=== PATIENT | male | born 1945 | race Caucasian/White ===

== ENCOUNTER 2022-05-12 03:18 | Inpatient (IN) | payer MEDICARE ==
[2022-05-12 03:52] LABS: Appearance,Urine Clear (Clear); Bilirubin,Urine Negative (Negative); Blood,Urine Negative (Negative); Color,Urine Yellow; Glucose,Urine (UA) Negative (Negative); Ketones,Urine 3+ (Negative); Leukocyte Esterase,Urine Negative (Negative); Mucus,Urine Rare /hpf; Nitrite,Urine Negative (Negative); PH, Urine 8.5 (5.0-8.0); Protein,Urine 1+ (Negative); Specific Gravity,Urine 1.018 (1.001-1.035); Urobilinogen,Urine <2.0 mg/dL (<2.0); WBC,Urine 2 /hpf (0-5)
--- NOTE | 2022-05-12 07:32 | ED ---
General Adult HPI - General Chief complaint: Abdominal Pain Stated complaint: Stomach pain Source: patient, RN notes reviewed Mode of arrival: wheelchair - History of Present Illness Initial comments: 77 year old male with a PMH of prostate cancer with prostatectomy and was seen for advanced triage purposes in waiting room. Patient presents for abdominal pain. Patient states the pain is more upper but a little lower too. He noticed it last night around 730 pm. He noticed it when he was at a restaurant. He denies any associated diarrhea. Last bowel movement was yesterday and was normal. He has had several episodes of vomiting. He had similar pain 2 nights ago but it was very mild. He denies any associated fevers. He is urinating normally. Denies any alleviating factors. Vomiting makes the pain better. Denies any associated chest pain or shortness of breath. - Related Data Home Medications Medication Instructions Recorded Confirmed Apalutamide [Erleada] 60 mg PO TUTHSA@0900 05/12/22 05/12/22 Apalutamide [Erleada] 120 mg PO SUMOWEFR@0900 05/12/22 05/12/22 Cholecalciferol [Vitamin D3 (125 125 mcg PO HS 05/12/22 05/12/22 Mcg = 5000 Iu)] Multivitamins, Thera [Multivitamin 1 tab PO HS 05/12/22 05/12/22 (formulary)] Allergies Allergy/AdvReac Type Severity Reaction Status Date / Time Sulfa (Sulfonamide Allergy Anaphylaxis Verified 05/12/22 12:00 Antibiotics) Review of Systems ROS Statement: Those systems with pertinent positive or pertinent negative responses have been documented in the HPI. ROS Other: All systems not noted in ROS Statement are negative. Past Medical History Past Medical History: Cancer Additional Past Medical History / Comment(s): prostate cancer History of Any Multi-Drug Resistant Organisms: None Reported Past Surgical History: Tonsillectomy Past Psychological History: No Psychological Hx Reported Smoking Status: Former smoker Past Alcohol Use History: None Reported Past Drug Use History: None Reported Course Vital Signs 05/12/22 05/12/22 05/12/22 03:33 08:17 10:44 Temperature 97.6 F 98.1 F Pulse Rate 114 H 76 85 Respiratory 18 20 16 Rate Blood Pressure 183/82 150/85 150/84 O2 Sat by Pulse 100 98 98 Oximetry 05/12/22 14:31 Temperature Pulse Rate 73 Respiratory 18 Rate Blood Pressure 148/88 O2 Sat by Pulse 98 Oximetry Medical Decision Making - Lab Data Result diagrams: 05/12/22 07:45 05/12/22 07:45 Lab Results 05/12/22 05/12/22 05/12/22 Range/Units 03:39 07:45 07:45 WBC 10.3 (3.8-10.6) k/uL RBC 4.35 (4.30-5.90) m/uL Hgb 14.2 (13.0-17.5) gm/dL Hct 41.5 (39.0-53.0) % MCV 95.3 (80.0-100.0) fL MCH 32.6 (25.0-35.0) pg MCHC 34.2 (31.0-37.0) g/dL RDW 12.1 (11.5-15.5) % Plt Count 234 (150-450) k/uL MPV 8.0 Neutrophils % 93 % Lymphocytes % 3 % Monocytes % 3 % Eosinophils % 0 % Basophils % 0 % Neutrophils # 9.6 H (1.3-7.7) k/uL Lymphocytes # 0.3 L (1.0-4.8) k/uL Monocytes # 0.3 (0-1.0) k/uL Eosinophils # 0.0 (0-0.7) k/uL Basophils # 0.0 (0-0.2) k/uL Sodium 135 L (137-145) mmol/L Potassium 3.7 (3.5-5.1) mmol/L Chloride 104 (98-107) mmol/L Carbon Dioxide 21 L (22-30) mmol/L Anion Gap 10 mmol/L BUN 19 (9-20) mg/dL Creatinine 0.77 (0.66-1.25) mg/dL Est GFR (CKD-EPI)AfAm >90 (>60 ml/min/1.73 sqM) Est GFR (CKD-EPI)NonAf 89 (>60 ml/min/1.73 sqM) Glucose 177 H (74-99) mg/dL Lactic Ac Sepsis Rflx Plasma Lactic Acid Collin (0.7-2.0) mmol/L Calcium 9.3 (8.4-10.2) mg/dL Total Bilirubin 0.8 (0.2-1.3) mg/dL AST 23 (17-59) U/L ALT 20 (4-49) U/L Alkaline Phosphatase 88 (38-126) U/L Total Protein 7.0 (6.3-8.2) g/dL Albumin 4.7 (3.5-5.0) g/dL Amylase 46 (30-110) U/L Lipase 62 (23-300) U/L Urine Color Yellow Urine Appearance Clear (Clear) Urine pH 8.5 H (5.0-8.0) Ur Specific [place] 1.018 (1.001-1.035) Urine Protein 1+ H (Negative) Urine Glucose (UA) Negative (Negative) Urine Ketones 3+ H (Negative) Urine Blood Negative (Negative) Urine Nitrite Negative (Negative) Urine Bilirubin Negative (Negative) Urine Urobilinogen <2.0 (<2.0) mg/dL Ur Leukocyte Esterase Negative (Negative) Urine WBC 2 (0-5) /hpf Urine Mucus Rare H (None) /hpf 05/12/22 05/12/22 Range/Units 07:45 08:26 WBC (3.8-10.6) k/uL RBC (4.30-5.90) m/uL Hgb (13.0-17.5) gm/dL Hct (39.0-53.0) % MCV (80.0-100.0) fL MCH (25.0-35.0) pg MCHC (31.0-37.0) g/dL RDW (11.5-15.5) % Plt Count (150-450) k/uL MPV Neutrophils % % Lymphocytes % % Monocytes % % Eosinophils % % Basophils % % Neutrophils # (1.3-7.7) k/uL Lymphocytes # (1.0-4.8) k/uL Monocytes # (0-1.0) k/uL Eosinophils # (0-0.7) k/uL Basophils # (0-0.2) k/uL Sodium (137-145) mmol/L Potassium (3.5-5.1) mmol/L Chloride (98-107) mmol/L Carbon Dioxide (22-30) mmol/L Anion Gap mmol/L BUN (9-20) mg/dL Creatinine (0.66-1.25) mg/dL Est GFR (CKD-EPI)AfAm (>60 ml/min/1.73 sqM) Est GFR (CKD-EPI)NonAf (>60 ml/min/1.73 sqM) Glucose (74-99) mg/dL Lactic Ac Sepsis Rflx Y Plasma Lactic Acid Collin 3.2 H* (0.7-2.0) mmol/L Calcium (8.4-10.2) mg/dL Total Bilirubin (0.2-1.3) mg/dL AST (17-59) U/L ALT (4-49) U/L Alkaline Phosphatase (38-126) U/L Total Protein (6.3-8.2) g/dL Albumin (3.5-5.0) g/dL Amylase (30-110) U/L Lipase (23-300) U/L Urine Color Urine Appearance (Clear) Urine pH (5.0-8.0) Ur Specific [place] (1.001-1.035) Urine Protein (Negative) Urine Glucose (UA) (Negative) Urine Ketones (Negative) Urine Blood (Negative) Urine Nitrite (Negative) Urine Bilirubin (Negative) Urine Urobilinogen (<2.0) mg/dL Ur Leukocyte Esterase (Negative) Urine WBC (0-5) /hpf Urine Mucus (None) /hpf Disposition Clinical Impression: Partial small bowel obstruction Disposition: ADMITTED IP TO THIS HOSP
[2022-05-12 07:56] LABS: Basophils % (A) 0 %; Eosinophils % (A) 0 %; HCT 41.5 % (39.0-53.0); HGB 14.2 gm/dL (13.0-17.5); Lymphocytes # (A) 0.3 k/uL (1.0-4.8); Lymphocytes % (A) 3 %; MCH 32.6 pg (25.0-35.0); MCHC 34.2 g/dL (31.0-37.0); MCV 95.3 fL (80.0-100.0); Monocytes # (A) 0.3 k/uL (0-1.0); Monocytes % (A) 3 %; Neutrophils # (A) 9.6 k/uL (1.3-7.7); Neutrophils % (A) 93 %; Platelet Count 234 k/uL (150-450); RBC 4.35 m/uL (4.30-5.90); RDW 12.1 % (11.5-15.5); WBC 10.3 k/uL (3.8-10.6)
[2022-05-12 08:21] LABS: ALT 20 U/L (4-49); AST 23 U/L (17-59); African American GFR (CKD) >90 (>60 ml/min/1.73 sqM); Albumin 4.7 g/dL (3.5-5.0); Alkaline Phosphatase 88 U/L (38-126); Amylase 46 U/L (30-110); Anion Gap 10 mmol/L; Blood Urea Nitrogen 19 mg/dL (9-20); Calcium 9.3 mg/dL (8.4-10.2); Carbon Dioxide 21 mmol/L (22-30); Chloride 104 mmol/L (98-107); Glucose 177 mg/dL (74-99); Lipase 62 U/L (23-300); Non-African American GFR(CKD) 89 (>60 ml/min/1.73 sqM); Potassium 3.7 mmol/L (3.5-5.1); Sodium 135 mmol/L (137-145); Total Bilirubin 0.8 mg/dL (0.2-1.3)
[2022-05-12] MEDS ORDERED: SODIUM CHLORIDE 0.9% 1,000 ML IV ONE ×2 (08:43→10:30)
[2022-05-12] MEDS ORDERED: ONDANSETRON 4 MG/2 ML VIAL IVP STA (08:43)
[2022-05-12] MEDS ORDERED: HYDROmorphone 0.5 MG/0.5 ML SYRINGE IVP STA (08:43)
--- NOTE | 2022-05-12 09:02 | ED ---
General Adult HPI - General Chief complaint: Abdominal Pain Stated complaint: Stomach pain Time Seen by Provider: 05/12/22 07:00 Source: patient, RN notes reviewed Mode of arrival: wheelchair - History of Present Illness Initial comments: This is a 77-year-old male presents emergency Department complaining of abdominal pain that started around 6:30 yesterday afternoon and worsened throughout the night. Patient states he has been vomiting quite a bit since then. Patient points to the suprapubic region where it is causing most of the pain. Patient states she does have a history of prostate cancer. Patient denies any diarrhea recently. Patient denies any fever chills. Patient states the pain is still there now it's not quite as bad as it was earlier. Patient still remains nauseated. She denies any chest pain. Patient denies any difficulty breathing. Patient has any pain radiates to the back. - Related Data Allergies Allergy/AdvReac Type Severity Reaction Status Date / Time Sulfa (Sulfonamide Allergy Rash/Hives Verified 05/12/22 03:38 Antibiotics) Review of Systems ROS Statement: Those systems with pertinent positive or pertinent negative responses have been documented in the HPI. ROS Other: All systems not noted in ROS Statement are negative. Past Medical History Past Medical History: Cancer Additional Past Medical History / Comment(s): prostate cancer History of Any Multi-Drug Resistant Organisms: None Reported Past Surgical History: Tonsillectomy Past Psychological History: No Psychological Hx Reported Smoking Status: Former smoker Past Alcohol Use History: None Reported Past Drug Use History: None Reported General Exam - General Exam Comments Initial Comments: GENERAL: Patient is well-developed and well-nourished. Patient is nontoxic and well- hydrated and is in mild distress. ENT: Neck is soft and supple. No significant lymphadenopathy is noted. Oropharynx is clear. Moist mucous membranes. Neck has full range of motion without eliciting any pain. EYES: The sclera were anicteric and conjunctiva were pink and moist. Extraocular movements were intact and pupils were equal round and reactive to light. Eyelids were unremarkable. PULMONARY: Unlabored respirations. Good breath sounds bilaterally. No audible rales rhonc hi or wheezing was noted. CARDIOVASCULAR: There is a regular rate and rhythm without any murmurs gallops or rubs. ABDOMEN: Very minimal tenderness in the suprapubic region SKIN: Skin is clear with no lesions or rashes and otherwise unremarkable. NEUROLOGIC: Patient is alert and oriented x3. Cranial nerves II through XII are grossly intact. Motor and sensory are also intact. Normal speech, volume and content. Symmetrical smile. MUSCULOSKELETAL: Normal extremities with adequate strength and full range of motion. LYMPHATICS: No significant lymphadenopathy is noted PSYCHIATRIC: Normal psychiatric evaluation. Course Vital Signs 05/12/22 05/12/22 03:33 08:17 Temperature 97.6 F 98.1 F Pulse Rate 114 H 76 Respiratory 18 20 Rate Blood Pressure 183/82 150/85 O2 Sat by Pulse 100 98 Oximetry Medical Decision Making - Medical Decision Making Was pt. sent in by a medical professional or institution (, PA, M[employer]ESS P[employer]ER, urgent care, hospital, or retirement...) When possible be specific @ -[No] Did you speak to anyone other than the patient for history (EMS, parent, family, police, friend...)? What history was obtained from this source @ -[No] Did you review nursing and triage notes (agree or disagree)? Why? @ -[I reviewed and agree with nursing and triage notes] Were old charts reviewed (outside hosp., previous admission, EMS record, old EKG, old radiological studies, urgent care reports/EKG's, retirement records)? Report findings @ -[No old charts were reviewed] Differential Diagnosis (chest pain, altered mental status, abdominal pain women, abdominal pain men, vaginal bleeding, weakness, fever, dyspnea, syncope, headache, dizziness, GI bleed, back pain, seizure, CVA, palpatations, mental health)? @ -Differential Abdominal Pain Men: Appendicitis, cholecystitis, diverticulosis, ischemic bowel, pancreatitis, hepatitis, UTI, gastroenteritis, AAA, incarcerated hernia, bowel obstruction, constipation, inflammatory bowel, hepatitis, peptic ulcer disease, splenic infarction, perforated viscus, testicular torsion, this is not meant to be an all-inclusive list EKG interpreted by me (3pts min.). @ -[As above] X-rays interpreted by me (1pt min.). @ -[None done] CT interpreted by me (1pt min.). @ -I interpreted the CT of the abdomen and pelvis shows small bowel structures U/S interpreted by me (1pt. min.). @ -[None done] What testing was considered but not performed or refused? (CT, X-rays, U/S, labs)? Why? @ -[None] What meds were considered but not given or refused? Why? @ -[None] Did you discuss the management of the patient with other professionals (professionals i.e. , PA, M[employer]ESS P[employer]ER, lab, RT, psych nurse, social science research assistant, insurance sales agent, teacher, finance officer, caser up)? Give summary @ -I spoke with sound physician's and he agreed to admit the patient admitted the patient I consulted surgery Was smoking cessation discussed for >3mins.? @ -[No] Was critical care preformed (if so, how long)? @ -[No] Were there social determinants of health that impacted care today? How? (Homelessness, low income, unemployed, alcoholism, drug addiction, transportation, low edu. Level, literacy, decrease access to med. care, senior care, rehab)? @ -[No] Was there de-escalation of care discussed even if they declined (Discuss DNR or withdrawal of care, Hospice)? DNR status @ -[No] What co-morbidities impacted this encounter? (DM, HTN, Smoking, COPD, CAD, Cancer, CVA, ARF, Chemo, Hep., AIDS, mental health diagnosis, sleep apnea, morbid obesity)? @ -Patient has a previous history of abdominal surgery for prostate cancer which can lead to adhesions Was patient admitted / discharged? Hospital course, mention meds given and route, prescriptions, significant lab abnormalities, going to OR and other pertinent info. @ -Patient will be admitted. I spoke with hospitalist agreed to admit the patient admitted the patient wrote admitting orders. Patient and she placed. Patient was also given nausea medicine and pain medicine Undiagnosed new problem with uncertain prognosis? @ -[No] Drug Therapy requiring intensive monitoring for toxicity (Heparin, Nitro, Insulin, Cardizem)? @ -[No] Were any procedures done? @ -[No] Diagnosis/symptom? @ -Small bowel obstruction Acute, or Chronic, or Acute on Chronic? @ -Acute Uncomplicated (without systemic symptoms) or Complicated (systemic symptoms)? @ -Complicated Side effects of treatment? @ -[No] Exacerbation, Progression, or Severe Exacerbation? @ -[No] Poses a threat to life or bodily function? How? (Chest pain, [place], ND, pneumonia, PE, COPD, DKA, ARF, appy, cholecystitis, CVA, Diverticulitis, Homicidal, Suicidal, threat to staff... and all critical care pts) @ -[No] - Lab Data Result diagrams: 05/12/22 07:45 05/12/22 07:45 Lab Results 05/12/22 05/12/22 05/12/22 Range/Units 03:39 07:45 07:45 WBC 10.3 (3.8-10.6) k/uL RBC 4.35 (4.30-5.90) m/uL Hgb 14.2 (13.0-17.5) gm/dL Hct 41.5 (39.0-53.0) % MCV 95.3 (80.0-100.0) fL MCH 32.6 (25.0-35.0) pg MCHC 34.2 (31.0-37.0) g/dL RDW 12.1 (11.5-15.5) % Plt Count 234 (150-450) k/uL MPV 8.0 Neutrophils % 93 % Lymphocytes % 3 % Monocytes % 3 % Eosinophils % 0 % Basophils % 0 % Neutrophils # 9.6 H (1.3-7.7) k/uL Lymphocytes # 0.3 L (1.0-4.8) k/uL Monocytes # 0.3 (0-1.0) k/uL Eosinophils # 0.0 (0-0.7) k/uL Basophils # 0.0 (0-0.2) k/uL Sodium 135 L (137-145) mmol/L Potassium 3.7 (3.5-5.1) mmol/L Chloride 104 (98-107) mmol/L Carbon Dioxide 21 L (22-30) mmol/L Anion Gap 10 mmol/L BUN 19 (9-20) mg/dL Creatinine 0.77 (0.66-1.25) mg/dL Est GFR (CKD-EPI)AfAm >90 (>60 ml/min/1.73 sqM) Est GFR (CKD-EPI)NonAf 89 (>60 ml/min/1.73 sqM) Glucose 177 H (74-99) mg/dL Lactic Ac Sepsis Rflx Plasma Lactic Acid Collin (0.7-2.0) mmol/L Calcium 9.3 (8.4-10.2) mg/dL Total Bilirubin 0.8 (0.2-1.3) mg/dL AST 23 (17-59) U/L ALT 20 (4-49) U/L Alkaline Phosphatase 88 (38-126) U/L Total Protein 7.0 (6.3-8.2) g/dL Albumin 4.7 (3.5-5.0) g/dL Amylase 46 (30-110) U/L Lipase 62 (23-300) U/L Urine Color Yellow Urine Appearance Clear (Clear) Urine pH 8.5 H (5.0-8.0) Ur Specific [place] 1.018 (1.001-1.035) Urine Protein 1+ H (Negative) Urine Glucose (UA) Negative (Negative) Urine Ketones 3+ H (Negative) Urine Blood Negative (Negative) Urine Nitrite Negative (Negative) Urine Bilirubin Negative (Negative) Urine Urobilinogen <2.0 (<2.0) mg/dL Ur Leukocyte Esterase Negative (Negative) Urine WBC 2 (0-5) /hpf Urine Mucus Rare H (None) /hpf 05/12/22 05/12/22 Range/Units 07:45 08:26 WBC (3.8-10.6) k/uL RBC (4.30-5.90) m/uL Hgb (13.0-17.5) gm/dL Hct (39.0-53.0) % MCV (80.0-100.0) fL MCH (25.0-35.0) pg MCHC (31.0-37.0) g/dL RDW (11.5-15.5) % Plt Count (150-450) k/uL MPV Neutrophils % % Lymphocytes % % Monocytes % % Eosinophils % % Basophils % % Neutrophils # (1.3-7.7) k/uL Lymphocytes # (1.0-4.8) k/uL Monocytes # (0-1.0) k/uL Eosinophils # (0-0.7) k/uL Basophils # (0-0.2) k/uL Sodium (137-145) mmol/L Potassium (3.5-5.1) mmol/L Chloride (98-107) mmol/L Carbon Dioxide (22-30) mmol/L Anion Gap mmol/L BUN (9-20) mg/dL Creatinine (0.66-1.25) mg/dL Est GFR (CKD-EPI)AfAm (>60 ml/min/1.73 sqM) Est GFR (CKD-EPI)NonAf (>60 ml/min/1.73 sqM) Glucose (74-99) mg/dL Lactic Ac Sepsis Rflx Y Plasma Lactic Acid [place]lin 3.2 H* (0.7-2.0) mmol/L Calcium (8.4-10.2) mg/dL Total Bilirubin (0.2-1.3) mg/dL AST (17-59) U/L ALT (4-49) U/L Alkaline Phosphatase (38-126) U/L Total Protein (6.3-8.2) g/dL Albumin (3.5-5.0) g/dL Amylase (30-110) U/L Lipase (23-300) U/L Urine Color Urine Appearance (Clear) Urine pH (5.0-8.0) Ur Specific [place] (1.001-1.035) Urine Protein (Negative) Urine Glucose (UA) (Negative) Urine Ketones (Negative) Urine Blood (Negative) Urine Nitrite (Negative) Urine Bilirubin (Negative) Urine Urobilinogen (<2.0) mg/dL Ur Leukocyte Esterase (Negative) Urine WBC (0-5) /hpf Urine Mucus (None) /hpf Disposition Clinical Impression: Partial small bowel obstruction Disposition: ADMITTED IP TO THIS HOSP Referrals: Emanuel Wade DO [Primary Care Provider] - 1-2 days Time of Disposition: 10:30
--- NOTE | 2022-05-12 09:56 | CT ---
EXAMINATION TYPE: CT abdomen pelvis w con DATE OF EXAM: 05/12/2022 COMPARISON: None. HISTORY: Upper abdominal pain with nausea CT DLP: 911.4 mGycm, Automated Exposure Control for Dose Reduction was Utilized. CONTRAST: CT scan of the abdomen and pelvis is performed without oral and with IV Contrast, patient injected wi th 100 mL of Isovue 300. FINDINGS: LUNG BASES: Mild bibasilar linear scarring and/or atelectasis. LIVER/GB: No significant abnormality is appreciated. PANCREAS: No significant abnormality is seen. SPLEEN: No significant abnormality is seen. ADRENALS: Heterogeneous thickened low dense bilateral adrenal glands consistent with benign lipid carlito h hyperplasia. KIDNEYS: Symmetric cortical partially uptake and excretion without hydronephrosis seen bilaterally. BOWEL: Small sized hiatal hernia. No suspicious dilatation of stomach or duodenal sweep. Nondilated j ejunal small bowel loops in the left abdomen. Predominantly nondilated ileal small bowel loops in the right abdomen. There are prominent fluid and fecal filled distal ileal small bowel loops in the lowe r abdomen and pelvis. There is nondistended colon along the periphery. Terminal ileum appears within normal limits coronal image 46. Small bowel loops measure up to 2.9 cm in diameter axial image 72. Ab rupt transition at this level noted in the pelvis. PROSTATE/SEMINAL VESICLES: No gross abnormality seen. LYMPH NODES: No greater than 1cm noncalcified abdominal or pelvic lymph nodes are appreciated. Calci fied prominent but subcentimeter right lower quadrant mesenteric lymph nodes are seen OSSEOUS STRUCTURES: No significant abnormality is seen. OTHER: Small fat-containing umbilical hernia. IMPRESSION: Findings consistent with partial distal small bowel obstruction as detailed above presume d on the basis of adhesion.
--- NOTE | 2022-05-12 16:03 | P.HPIM ---
History of Present Illness H&P Date: 05/12/22 Patient is a 77-year-old male with PMH of prostate cancer, underwent robotic prostatectomy in 2006 presents the ED for epigastric pain and intractable nausea and vomiting. Patient reports vague abdominal pain that has been ongoing for the past week. Yesterday, his pain acutely worsened after eating dinner at [employer]. This was followed with 10-15 episodes of bilious nausea vomiting. These symptoms prompted him to come to the ED. He denies any headache, lower extremity edema, fever or chills, cough, chest pain, shortness breath, palpitations, changes in urination or bowel habits. No changes in appetite or weight. He denies any dizziness, numbness/weakness/tingling of extremities. In the ED, he was noted to be hypertensive with BP 183/82 and pulse of 114. CBC was benign. CMP showed sodium of 135, bicarb of 21, glucose 177. Lactic acid was 3.2. Urinalysis showed 3+ ketone. CTAP showed partial distal small bowel obstruction. Patient is admitted for further workup and management of symptoms. NG tube was placed to suction which relieved his abdominal pain. Pertinent positives and negatives as discussed in HPI, a complete review of systems was performed and all other systems are negative. General: non toxic, no distress, appears at stated age Derm: warm, dry Head: atraumatic, normocephalic, symmetric Eyes: EOMI, no lid lag, anicteric sclera Mouth: no lip lesion, mucus membranes moist Cardiovascular: S1S2 reg, no murmur, positive posterior tibial pulse bilateral, Lungs: CTA bilateral, no rhonchi, no rales , no accessory muscle use Abdominal: soft, nontender to palpation, no guarding, no appreciable organomegaly Ext: no gross muscle atrophy, no edema, no contractures Neuro: CN II-XI grossly intact, no focal neuro deficits Psych: Alert, oriented, appropriate affect #Small bowel obstruction #Lactic acidosis He does not appear to have an acute abdomen. Likely related to adhesions from previous surgery. Patient will be started on IV hydration with normal saline at 75 mL per hour. General surgery has been consulted. He'll be placed nothing by mouth. KUB ordered for tomorrow morning. Pain control with Dilaudid as needed. Zofran as needed for nausea and vomiting. Trend lactic acid until negative. Chronic conditions: History of prostate cancer Patient will need follow-up with oncologist Dr. Morrow at [facility]. DVT prophylaxis: SCDs Discussed with: Patient, ED physician Anticipated discharge: Depending on clinical course Anticipated discharge place: Home A total of 30 minutes was spent on the care of this complex patient more than 50% of the time was spent in counseling and care coordination. Patient will like to be full code. is his decision maker if he can't make decisions for himself. Past Medical History Past Medical History: Cancer Additional Past Medical History / Comment(s): prostate cancer History of Any Multi-Drug Resistant Organisms: None Reported Past Surgical History: Tonsillectomy Past Psychological History: No Psychological Hx Reported Smoking Status: Former smoker Past Alcohol Use History: None Reported Past Drug Use History: None Reported Medications and Allergies Home Medications Medication Instructions Recorded Confirmed Type Apalutamide [Erleada] 60 mg PO TUTHSA@0900 05/12/22 05/12/22 History Apalutamide [Erleada] 120 mg PO SUMOWEFR@0900 05/12/22 05/12/22 History Cholecalciferol [Vitamin D3 (125 125 mcg PO HS 05/12/22 05/12/22 History Mcg = 5000 Iu)] Multivitamins, Thera [Multivitamin 1 tab PO HS 05/12/22 05/12/22 History (formulary)] Allergies Allergy/AdvReac Type Severity Reaction Status Date / Time Sulfa (Sulfonamide Allergy Anaphylaxis Verified 05/12/22 12:00 Antibiotics) Physical Exam Vitals: Vital Signs Temp Pulse Resp BP Pulse Ox 05/12/22 14:31 73 18 148/88 98 05/12/22 10:44 85 16 150/84 98 05/12/22 08:17 98.1 F 76 20 150/85 98 05/12/22 03:33 97.6 F 114 H 18 183/82 100 Intake and Output 05/12/22 05/12/22 05/12/22 06:59 14:59 22:59 Other: Weight 79.379 kg Results CBC & Chem 7: 05/12/22 07:45 05/12/22 07:45 Labs: Abnormal Lab Results - Last 24 Hours (Table) 05/12/22 05/12/22 05/12/22 Range/Units 03:39 07:45 07:45 Neutrophils # 9.6 H (1.3-7.7) k/uL Lymphocytes # 0.3 L (1.0-4.8) k/uL Sodium 135 L (137-145) mmol/L Carbon Dioxide 21 L (22-30) mmol/L Glucose 177 H (74-99) mg/dL Plasma Lactic Acid [place] (0.7-2.0) mmol/L Urine pH 8.5 H (5.0-8.0) Urine Protein 1+ H (Negative) Urine Ketones 3+ H (Negative) Urine Mucus Rare H (None) /hpf 05/12/22 Range/Units 07:45 Neutrophils # (1.3-7.7) k/uL Lymphocytes # (1.0-4.8) k/uL Sodium (137-145) mmol/L Carbon Dioxide (22-30) mmol/L Glucose (74-99) mg/dL Plasma Lactic Acid [place] 3.2 H* (0.7-2.0) mmol/L Urine pH (5.0-8.0) Urine Protein (Negative) Urine Ketones (Negative) Urine Mucus (None) /hpf
--- NOTE | 2022-05-13 07:38 | XR ---
EXAMINATION TYPE: XR abdomen 2V DATE OF EXAM: 05/13/2022 7:13 AM INDICATION: Patient age:Male; 77 years old; Reason for study: sbo. COMPARISON: None. TECHNIQUE: Two views of the abdomen were obtained. FINDINGS: Nasogastric tube terminating over the gastric lumen. The bowel gas pattern is nonspecific w ithout dilated loops of small or large bowel. There is no evidence for organomegaly or pneumoperitone um. The osseous structures are intact. No abnormal calcifications are present. Fecal material and g as are demonstrated throughout the colon and rectum. Multilevel disc degeneration changes. IMPRESSION: Nasogastric tube with distal tip and side-port terminating over the gastric lumen. No dilated loops of bowel seen on radiography. Nonspecific bowel gas pattern without radiographic bhavik dence for acute process.
[2022-05-13 11:25] LABS: Basophils # (A) 0.02 X 10*3/uL (0.00-0.10); Basophils % (A) 0.2 %; Eosinophils # (A) 0.02 X 10*3/uL (0.04-0.35); Eosinophils % (A) 0.2 %; HCT 40.2 % (39.6-50.0); HGB 13.1 g/dL (13.0-17.0); Immature Grans, Automated 0.2 %; Lymphocytes # (A) 0.74 X 10*3/uL (0.90-5.00); Lymphocytes % (A) 6.5 %; MCH 32.3 pg (27.0-32.0); MCHC 32.6 g/dL (32.0-37.0); MCV 99.3 fL (80.0-97.0); Mean Platelet Volume 10.1 fL (9.5-12.2); Monocytes # (A) 1.12 X 10*3/uL (0.20-1.00); Monocytes % (A) 9.9 %; NRBC Per 100 WBC 0 /100 WBCS (0.0-0.0); Neutrophils # (A) 9.38 X 10*3/uL (1.80-7.70); Platelet Count 213 X 10*3/uL (140-440); RBC 4.05 X 10*6/uL (4.40-5.60); RDW 13.2 % (11.5-14.5)
[2022-05-13 11:31] LABS: Anion Gap 10.4 mmol/L (10.00-18.00); BUN/Creat Ratio 16.76 Ratio (12.00-20.00); Blood Urea Nitrogen 14.9 mg/dL (9.0-27.0); Calcium 8.6 mg/dL (8.7-10.3); Carbon Dioxide 23.8 mmol/L (20.0-27.5); Non-African American GFR(CKD) 83.7 (60.0-200.0); Potassium 3.6 mmol/L (3.5-5.5)
--- NOTE | 2022-05-13 13:17 | P.PN ---
Subjective Progress Note Date: 05/13/22 Patient is a 77-year-old male with PMH of prostate cancer, underwent robotic prostatectomy in 2006 presents the ED for epigastric pain and intractable nausea and vomiting. Patient reports vague abdominal pain that has been ongoing for the past week. Yesterday, his pain acutely worsened after eating dinner at [employer]. This was followed with 10-15 episodes of bilious nausea vomiting. These symptoms prompted him to come to the ED. He denies any headache, lower extremity edema, fever or chills, cough, chest pain, shortness breath, palpitations, changes in urination or bowel habits. No changes in appetite or weight. He denies any dizziness, numbness/weakness/tingling of extremities. In the ED, he was noted to be hypertensive with BP 183/82 and pulse of 114. CBC was benign. CMP showed sodium of 135, bicarb of 21, glucose 177. Lactic acid was 3.2. Urinalysis showed 3+ ketone. CTAP showed partial distal small bowel obstruction. Patient is admitted for further workup and management of symptoms. NG tube was placed to suction which relieved his abdominal pain. Patient was seen and examined. No acute events overnight. About 500 mL output from the NG tube overnight. Patient reports well controlled abdominal pain. No nausea or vomiting. No other complaints. KUB reviewed this morning which shows NG tube in place with no dilated loops of bowel. General: non toxic, no distress, appears at stated age Derm: warm, dry Head: atraumatic, normocephalic, symmetric Eyes: EOMI, no lid lag, anicteric sclera Mouth: no lip lesion, mucus membranes moist Cardiovascular: S1S2 reg, no murmur Lungs: CTA bilateral, no rhonchi, no rales , no accessory muscle use Abdominal: soft, nontender to palpation, no guarding, no appreciable organomegaly Ext: no gross muscle atrophy, no edema, no contractures Neuro: no focal neuro deficits Psych: Alert, oriented, appropriate affect #Small bowel obstruction He does not appear to have an acute abdomen. Likely related to adhesions from previous surgery. Patient will be started on IV hydration with normal saline at 75 mL per hour. General surgery has been consulted. He'll be continued nothing by mouth. Pain control with Dilaudid as needed. Zofran as needed for nausea and vomiting. #Leukocytosis WBC count of 11.3. Likely reactive. No signs of active infection. No indication for antibiotics. Continue to monitor. Resolved: Lactic acidosis Chronic conditions: History of prostate cancer Patient will need follow-up with oncologist Dr. Morrow at [facility]. Objective - Vital Signs Vital signs: Vital Signs Temp 98.7 F 05/13/22 07:40 Pulse 69 05/13/22 07:40 Resp 18 05/13/22 07:40 BP 132/75 05/13/22 07:40 Pulse Ox 95 05/13/22 07:40 FiO2 Intake & Output 05/12/22 05/13/22 05/13/22 18:59 06:59 18:59 Intake Total 0 Balance 0 Weight 79.379 kg Intake: Oral 0 Other: Voiding Method Urinal Urinal # Voids 2 - Labs CBC & Chem 7: 05/13/22 07:54 05/13/22 07:54 Labs: Abnormal Lab Results - Last 24 Hours (Table) 05/13/22 05/13/22 Range/Units 07:54 07:54 WBC 11.30 H (4.50-10.00) X 10*3/uL RBC 4.05 L (4.40-5.60) X 10*6/uL MCV 99.3 H (80.0-97.0) fL MCH 32.3 H (27.0-32.0) pg Neutrophils # 9.38 H (1.80-7.70) X 10*3/uL Lymphocytes # 0.74 L (0.90-5.00) X 10*3/uL Monocytes # 1.12 H (0.20-1.00) X 10*3/uL Eosinophils # 0.02 L (0.04-0.35) X 10*3/uL Glucose 111 H (70-110) mg/dL Calcium 8.6 L (8.7-10.3) mg/dL
--- NOTE | 2022-05-13 14:50 | P.GSCN ---
History of Present Illness Consult date: 05/13/22 Reason for Consult: Small bowel obstruction History of present illness: 77-year-old male presents to the hospital with crampy abdominal pain. Patient had multiple episodes of nausea and vomiting. Pain began 2 nights ago. He apparently was out to dinner when this started. Pain on presentation was a 10. Today is down to 0. Mild cramps at times. He is passing flatus. Last bowel movement a few days ago. No history of similar events. Surgical history includes robotic prostatectomy. CAT scan shows small bowel obstruction. White blood cell count 10.3 today 11.3. Vital stable. Review of Systems The patient denies any acute changes in vision or hearing, no dysphagia or odynophagia, no chest pain or shortness of breath, no dysuria or hematuria, no headache, no runny nose, no rectal bleeding or melena, no unexplained weight loss Past Medical History Past Medical History: Cancer Additional Past Medical History / Comment(s): prostate cancer History of Any Multi-Drug Resistant Organisms: None Reported Past Surgical History: Prostate Surgery, Tonsillectomy Past Anesthesia/Blood Transfusion Reactions: No Reported Reaction Past Psychological History: No Psychological Hx Reported Smoking Status: Former smoker Past Alcohol Use History: None Reported Past Drug Use History: None Reported - Past Family History Mother Family Medical History: Cancer Additional Family Medical History / Comment(s): from leukemia Sister(s) Family Medical History: Cancer Additional Family Medical History / Comment(s): breast cancer Medications and Allergies Home Medications Medication Instructions Recorded Confirmed Type Apalutamide [Erleada] 60 mg PO TUTHSA@0900 05/12/22 05/12/22 History Apalutamide [Erleada] 120 mg PO SUMOWEFR@0900 05/12/22 05/12/22 History Cholecalciferol [Vitamin D3 (125 125 mcg PO HS 05/12/22 05/12/22 History Mcg = 5000 Iu)] Multivitamins, Thera [Multivitamin 1 tab PO HS 05/12/22 05/12/22 History (formulary)] Allergies Allergy/AdvReac Type Severity Reaction Status Date / Time Sulfa (Sulfonamide Allergy Anaphylaxis Verified 05/12/22 12:00 Antibiotics) Surgical - Exam Vital Signs Temp Pulse Resp BP Pulse Ox 97.6 F 114 H 18 183/82 100 05/12/22 03:33 05/12/22 03:33 05/12/22 03:33 05/12/22 03:33 05/12/22 03:33 Physical exam: General: Well-developed, well-nourished HEENT: Normocephalic, sclerae nonicteric Abdomen: Minimal distention, nontender Extremities: No edema Neuro: Alert and oriented Results - Labs 05/13/22 07:54 05/13/22 07:54 Abnormal Lab Results - Last 24 Hours (Table) 05/13/22 05/13/22 Range/Units 07:54 07:54 WBC 11.30 H (4.50-10.00) X 10*3/uL RBC 4.05 L (4.40-5.60) X 10*6/uL MCV 99.3 H (80.0-97.0) fL MCH 32.3 H (27.0-32.0) pg Neutrophils # 9.38 H (1.80-7.70) X 10*3/uL Lymphocytes # 0.74 L (0.90-5.00) X 10*3/uL Monocytes # 1.12 H (0.20-1.00) X 10*3/uL Eosinophils # 0.02 L (0.04-0.35) X 10*3/uL Glucose 111 H (70-110) mg/dL Calcium 8.6 L (8.7-10.3) mg/dL Diabetes panel 05/13/22 Range/Units 07:54 Sodium 141 (135-145) mmol/L Potassium 3.6 (3.5-5.5) mmol/L Chloride 107 (96-109) mmol/L Carbon Dioxide 23.8 (20.0-27.5) mmol/L BUN 14.9 (9.0-27.0) mg/dL Creatinine 0.9 (0.6-1.5) mg/dL Glucose 111 H (70-110) mg/dL Calcium 8.6 L (8.7-10.3) mg/dL Calcium panel 05/13/22 Range/Units 07:54 Calcium 8.6 L (8.7-10.3) mg/dL Pituitary panel 05/13/22 Range/Units 07:54 Sodium 141 (135-145) mmol/L Potassium 3.6 (3.5-5.5) mmol/L Chloride 107 (96-109) mmol/L Carbon Dioxide 23.8 (20.0-27.5) mmol/L BUN 14.9 (9.0-27.0) mg/dL Creatinine 0.9 (0.6-1.5) mg/dL Glucose 111 H (70-110) mg/dL Calcium 8.6 L (8.7-10.3) mg/dL Adrenal panel 05/13/22 Range/Units 07:54 Sodium 141 (135-145) mmol/L Potassium 3.6 (3.5-5.5) mmol/L Chloride 107 (96-109) mmol/L Carbon Dioxide 23.8 (20.0-27.5) mmol/L BUN 14.9 (9.0-27.0) mg/dL Creatinine 0.9 (0.6-1.5) mg/dL Glucose 111 H (70-110) mg/dL Calcium 8.6 L (8.7-10.3) mg/dL Assessment and Plan (1) Partial small bowel obstruction Narrative/Plan: 77-year-old male with CAT scan suggesting small bowel obstruction likely secondary to adhesions. We'll order small bowel series with [facility] tomorrow. Keep nothing by mouth with nasogastric tube to suction for now. Current Visit: Yes Status: Acute Code(s): K56.600 - PARTIAL INTESTINAL OBSTRUCTION, UNSPECIFIED TO CAUSE SNOMED Code(s): 650484034
--- NOTE | 2022-05-14 11:07 | FL ---
EXAMINATION TYPE: FL small bowel follow through DATE OF EXAM: 05/14/2022 10:16 AM COMPARISON: CT abdomen pelvis most recent from 05/12/2022 INDICATION: Patient age:Male; 77 years old; Reason for study: Bowel obstruction; TECHNIQUE: The procedure was explained and patient history elicited. All patient questions were ans wered prior to start of procedure. A hazmat tanker driver radiograph of the abdomen was also reviewed. The patient was asked to ingest liquid Gastrografin and incremental frontal abdominal radiographs were then taken until contrast was visualized in the cecum. Fluoroscopic time:0 min Fluoroscopic images:0 Radiographs taken: 8 FINDINGS: The hazmat tanker driver abdominal radiograph demonstrates a normal bowel gas pattern without dilated loops of small or large bowel. There is no evidence of organomegaly or pneumoperitoneum. No abnormal calcifications . The visualized osseous structures are intact. Multilevel disc degeneration changes are seen through out the spine. Mild osteophyte formation of the hips present. Nasogastric tube in appropriate positio n projecting over the gastric lumen. Mildly dilated gas-filled loop of bowel in the right abdomen maura suring up to 3.3 cm. Contrast is seen extending from the duodenojejunal junction into the cecum after 1 hour, which is wit hin the expected time period. The small bowel follows normal distribution and contour without any ev idence of extraluminal or intraluminal irregularity. There is no displacement of bowel loops or extr aluminal extravasation of contrast material. Small bowel mucosal folds are felt to be within normal l imits. IMPRESSION: No evidence for complete bowel obstruction.
--- NOTE | 2022-05-14 15:02 | P.PN ---
Subjective Progress Note Date: 05/14/22 CHIEF COMPLAINT: Small bowel obstruction HISTORY OF PRESENT ILLNESS: Patient reports improvement in his abdominal pain. He is having bowel movements and flatus. He underwent a small bowel follow- through this morning that shows no evidence for complete bowel obstruction. Afebrile. PHYSICAL EXAM: VITAL SIGNS: Reviewed. GENERAL: Well-developed in no acute distress. HEENT: No sclera icterus. Extraocular movements grossly intact. Moist buccal mucosa. Head is atraumatic, normocephalic. ABDOMEN: Soft. Nondistended. Nontender. NEUROLOGIC: Alert and oriented. Cranial nerves II through XII grossly intact. ASSESSMENT: 1. Small bowel obstruction likely secondary to adhesions. Resolved PLAN: -Start clear liquid diet -Discontinue NG tube -Encouraged patient to increase activity level Physician Church History Teacher note has been reviewed by physician. Signing provider agrees with the documented findings, assessment, and plan of care. Objective - Vital Signs Vital signs: Vital Signs Temp 98.2 F 05/14/22 12:38 Pulse 78 05/14/22 12:38 Resp 20 05/14/22 12:38 BP 157/68 05/14/22 12:38 Pulse Ox 93 L 05/14/22 12:38 FiO2 Intake & Output 05/13/22 05/14/22 05/14/22 18:59 06:59 18:59 Intake Total 900 900 Output Total 200 Balance 700 900 Intake: IV 900 0.9 900 Intake, IV Titration 900 Amount Sodium Chloride 0.9% 1, 900 000 ml @ 75 mls/hr IV . [id number] ONE Rx#:[id number] Output: Gastric Drainage 200 Other: Voiding Method Urinal Urinal Urinal - Labs CBC & Chem 7: 05/13/22 07:54 05/13/22 07:54
[2022-05-14] MEDS ORDERED: ONDANSETRON 4 MG/2 ML VIAL IVP PRN (16:22)
[2022-05-14] MEDS ORDERED: ACETAMINOPHEN TAB 325 MG TAB PO PRN (16:22)
[2022-05-14] MEDS ORDERED: HYDROcodone/APAP 5-325MG 1 EACH TAB PO PRN (16:22)
--- NOTE | 2022-05-14 16:24 | P.PN ---
Subjective Progress Note Date: 05/14/22 (delayed charting seen at 12:10) Patient is a 77-year-old male with prior prostate cance s/p robotic prostatectomy in 2006 who presented to the ED for epigastric pain and intractable nausea and vomiting. Patient reports vague abdominal pain that has been ongoing for the past week. Yesterday, his pain acutely worsened after eating dinner at [employer]. In the ER he underwent extensive evaluation. He was noted to be hypertensive with BP 183/82 and pulse of 114. CBC was benign. CMP showed sodium of 135, bicarb of 21, glucose 177. Lactic acid was 3.2. Urinalysis showed 3+ ketone. CT abdomen and pelvis demonstrated showed partial distal small bowel obstruction. Patient is admitted for further workup and management of bowel obstruction. NG tube was placed to suction which relieved his abdominal pain and vomiting. Surgery was consulted. Patient underwent all bowel follow-through on 05/14/22 which did not demonstrate any signs of obstruction. He began having bowel movements. Patient seen and examined at bedside. He reports he started having bowel movements after drinking the contrast for his small bowel follow-through. Is a diabetic of pain. No nausea or vomiting. Feeling thirsty. and daughter present at bedside. All questions answered. General: nontoxic, no distress, appears at stated age Derm: warm, dry Head: atraumatic, normocephalic, symmetric Eyes: EOMI, no lid lag, anicteric sclera Mouth: no lip lesion, mucus membranes dry, NGT in place Cardiovascular: S1S2 reg, no murmur, positive posterior tibial pulse bilateral, Lungs: CTA bilateral, no rhonchi, no rales , no accessory muscle use Abdominal: soft, nontender to palpation, no guarding, no appreciable organomegaly Ext: no gross muscle atrophy, no edema, no contractures Neuro: CN II-XI grossly intact, no focal neuro deficits Psych: Alert, oriented, appropriate affect Partial small bowel obstruction, appears resolved -Images from small bowel follow-through were reviewed and showed opacification of the small intestine. Radiology interpretation was reviewed which shows no signs of obstruction. 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 We'll repeat in a.m. to ensure resolution of his leukocytosis. Elevated blood pressure without diagnosis of hypertension, resolved Lactic acidosis, resolved DVT prophylaxis: Early ambulation Discussed with: Patient, family, nursing Anticipated discharge: In a.m. Anticipated discharge place: Home A total of 35 minutes was spent on the care of this complex patient more than 50% of the time was spent in counseling and care coordination. Objective - Vital Signs Vital signs: Vital Signs Temp 98.2 F 05/14/22 12:38 Pulse 78 05/14/22 12:38 Resp 20 05/14/22 12:38 BP 157/68 05/14/22 12:38 Pulse Ox 93 L 05/14/22 12:38 FiO2 Intake & Output 05/13/22 05/14/22 05/14/22 18:59 06:59 18:59 Intake Total 900 900 Output Total 200 Balance 700 900 Intake: IV 900 0.9 900 Intake, IV Titration 900 Amount Sodium Chloride 0.9% 1, 900 000 ml @ 75 mls/hr IV . [id number] ONE Rx#:[id number] Output: Gastric Drainage 200 Other: Voiding Method Urinal Urinal Urinal - Labs CBC & Chem 7: 05/13/22 07:54 05/13/22 07:54
[2022-05-14] MEDS: MULTIVITAMINS, THERA 1 EACH TAB PO SCH (20:34)
[2022-05-14] MEDS: CHOLECALCIFEROL 125 MCG (5000 IU) TABLET PO SCH (20:34)
[2022-05-15 06:35] LABS: HCT 35.7 % (39.0-53.0); MCH 33.3 pg (25.0-35.0); MCHC 33.5 g/dL (31.0-37.0); MCV 99.3 fL (80.0-100.0); Mean Platelet Volume 8.2; Platelet Count 171 k/uL (150-450); RDW 12.4 % (11.5-15.5); WBC 7.7 k/uL (3.8-10.6)
[2022-05-15 06:46] LABS: African American GFR (CKD) >90 (>60 ml/min/1.73 sqM); Anion Gap 3 mmol/L; Blood Urea Nitrogen 18 mg/dL (9-20); Calcium 8.1 mg/dL (8.4-10.2); Carbon Dioxide 25 mmol/L (22-30); Chloride 110 mmol/L (98-107); Glucose 89 mg/dL (74-99); Non-African American GFR(CKD) 89 (>60 ml/min/1.73 sqM); Potassium 4.4 mmol/L (3.5-5.1); Sodium 138 mmol/L (137-145)
[2022-05-15] MEDS ORDERED: APALUTAMIDE 60 MG PO SCH (09:00)
--- NOTE | 2022-05-15 15:34 | P.PN ---
Subjective Progress Note Date: 05/15/22 CHIEF COMPLAINT: Small bowel obstruction HISTORY OF PRESENT ILLNESS: Patient reports that he does have abdominal pain that improved after flatus. Patient has had liquidy stools. Denies any nausea vomiting. Tolerating clear liquid. Afebrile. WBC 11.3 down to 7.7 HGB 12 plt 171 PHYSICAL EXAM: VITAL SIGNS: Reviewed. GENERAL: Well-developed in no acute distress. HEENT: No sclera icterus. Extraocular movements grossly intact. Moist buccal mucosa. Head is atraumatic, normocephalic. ABDOMEN: Soft. Nondistended. NEUROLOGIC: Alert and oriented. Cranial nerves II through XII grossly intact. ASSESSMENT: 1. Small bowel obstruction likely secondary to adhesions. Resolved PLAN: -Medicine advanced diet to full liquids -Encouraged patient to increase activity level -Continue to monitor Physician Rn Call Center note has been reviewed by physician. Signing provider agrees with the documented findings, assessment, and plan of care. I have personally seen and examined the patient, reviewed the WOOD MILLING MACHINE OPERATOR /PAs history, exam and MDM and agree with the assessment and plan as written. Based on total v isit time, I have performed more than 50% of the visit. As above: Patient doing better today. He is having mild left lower abdominal discomfort but says its much much better than it was when he came in. He is passing flatus. No nausea or vomiting. Tolerating liquid diet so far. Will advance diet. May discharge tomorrow if tolerates. Objective - Vital Signs Vital signs: Vital Signs Temp 98.0 F 05/15/22 12:53 Pulse 60 05/15/22 12:53 Resp 16 05/15/22 12:53 BP 148/75 05/15/22 12:53 Pulse Ox 95 05/15/22 12:53 FiO2 Intake & Output 05/14/22 05/15/22 05/15/22 18:59 06:59 18:59 Intake Total 1020 Balance 1020 Intake: IV 900 0.9 900 Oral 120 Other: Voiding Method Urinal Toilet Toilet Urinal Urinal # Voids 2 - Labs CBC & Chem 7: 05/15/22 05:39 05/15/22 05:39 Labs: Abnormal Lab Results - Last 24 Hours (Table) 05/15/22 05/15/22 Range/Units 05:39 05:39 RBC 3.60 L (4.30-5.90) m/uL Hgb 12.0 L (13.0-17.5) gm/dL Hct 35.7 L (39.0-53.0) % Chloride 110 H (98-107) mmol/L Calcium 8.1 L (8.4-10.2) mg/dL
--- NOTE | 2022-05-15 16:53 | P.PN ---
Subjective Progress Note Date: 05/15/22 (delayed charting seen at 1130) Patient is a 77-year-old male with prior prostate cance s/p robotic prostatectomy in 2006 who presented to the ED for epigastric pain and intractable nausea and vomiting. Patient reports vague abdominal pain that has been ongoing for the past week. Yesterday, his pain acutely worsened after eating dinner at [employer]. In the ER he underwent extensive evaluation. He was noted to be hypertensive with BP 183/82 and pulse of 114. CBC was benign. CMP showed sodium of 135, bicarb of 21, glucose 177. Lactic acid was 3.2. Urinalysis showed 3+ ketone. CT abdomen and pelvis demonstrated showed partial distal small bowel obstruction. Patient is admitted for further workup and management of bowel obstruction. NG tube was placed to suction which relieved his abdominal pain and vomiting. Surgery was consulted. Patient underwent all bowel follow-through on 05/14/22 which did not demonstrate any signs of obstruction. He began having bowel movements. he tolerated a clear diet. Patient seen and examined at bedside. He reports that he gets cramping earlier but that he had a liquid bowel movement and passed flatus and has currently resolved. He is feeling very hungry. He is not having any belly pain at this time. He is asking for diet to be increased. and daughter present at bedside- questions answered. General: nontoxic, no distress, appears at stated age Derm: warm, dry Head: atraumatic, normocephalic, symmetric Eyes: EOMI, no lid lag, anicteric sclera Mouth: no lip lesion, mucus membranes dry, NGT in place Cardiovascular: S1S2 reg, no murmur, positive posterior tibial pulse bilateral, Lungs: CTA bilateral, no rhonchi, no rales , no accessory muscle use Abdominal: soft, nontender to palpation, no guarding, no appreciable organom egaly Ext: no gross muscle atrophy, no edema, no contractures Neuro: CN II-XI grossly intact, no focal neuro deficits Psych: Alert, oriented, appropriate affect Partial small bowel obstruction, appears resolved - increase to full liquid -Surgery recommendations appreciated Leukocytosis, likely reactive, resolved Elevated blood pressure without diagnosis of hypertension, resolved Lactic acidosis, resolved DVT prophylaxis: Early ambulation Discussed with: Patient, family, nursing Anticipated discharge: In a.m. Anticipated discharge place: Home A total of 25 minutes was spent on the care of this complex patient more than 50% of the time was spent in counseling and care coordination. Active Medications Generic Name Dose Route Start Last Admin Trade Name Freq PRN Reason Stop Dose Admin Acetaminophen 650 mg 05/14/22 16:22 Acetaminophen Tab 325 Mg Tab PO Q6HR PRN Fever and/ or Pain Hydrocodone Bitart/Acetaminophen 1 each 05/14/22 16:22 Hydrocodone/Apap 5-325mg 1 Each Tab PO Q6HR PRN Pain Cholecalciferol 125 mcg 05/14/22 21:00 05/14/22 20:34 Cholecalciferol 125 Mcg (5000 Iu) Tablet PO 125 mcg HS THALIA Administration Multivitamins 1 each 05/14/22 21:00 05/14/22 20:34 Multivitamins, Thera 1 Each Tab PO 1 each HS THALIA Administration Non-Formulary Medication 60 mg 05/15/22 09:00 05/15/22 09:41 Apalutamide [Erleada] PO Not Given TUTHSA@0900 [facility] Non-Formulary Medication 120 mg 05/16/22 09:00 Apalutamide [Erleada] PO SUMOWEFR@0900 [facility] Ondansetron HCl 4 mg 05/14/22 16:22 Ondansetron 4 Mg/2 Ml Vial IVP Q6H PRN Nausea Objective - Vital Signs Vital signs: Vital Signs Temp 98.0 F 05/15/22 12:53 Pulse 60 05/15/22 12:53 Resp 16 05/15/22 12:53 BP 148/75 05/15/22 12:53 Pulse Ox 95 05/15/22 12:53 FiO2 Intake & Output 05/14/22 05/15/22 05/15/22 18:59 06:59 18:59 Intake Total 1020 Balance 1020 Intake: IV 900 0.9 900 Oral 120 Other: Voiding Method Urinal Toilet Toilet Urinal Urinal # Voids 2 - Labs CBC & Chem 7: 05/15/22 05:39 05/15/22 05:39 Labs: Abnormal Lab Results - Last 24 Hours (Table) 05/15/22 05/15/22 Range/Units 05:39 05:39 RBC 3.60 L (4.30-5.90) m/uL Hgb 12.0 L (13.0-17.5) gm/dL Hct 35.7 L (39.0-53.0) % Chloride 110 H (98-107) mmol/L Calcium 8.1 L (8.4-10.2) mg/dL
[2022-05-15] MEDS: CHOLECALCIFEROL 125 MCG (5000 IU) TABLET PO SCH (20:28)
[2022-05-15] MEDS: MULTIVITAMINS, THERA 1 EACH TAB PO SCH (20:28)
[2022-05-16 08:04] VITALS: BP 116/70; RESP 16; TEMP 97.8
[2022-05-16 08:56] VITALS: PULSE 73
[2022-05-16] MEDS ORDERED: APALUTAMIDE 60 MG PO SCH (09:00)
--- NOTE | 2022-05-16 14:00 | P.PN ---
Subjective Progress Note Date: 05/16/22 CHIEF COMPLAINT: Small bowel obstruction HISTORY OF PRESENT ILLNESS: Patient is feeling better today. Denies any abdominal pain. He is having bowel movements. He did have flatus. Denies any nausea or vomiting. Tolerating diet. He feels ready for discharge. Afebrile. WBc 7.7 Hgb 12 PHYSICAL EXAM: VITAL SIGNS: Reviewed. GENERAL: Well-developed in no acute distress. HEENT: No sclera icterus. Extraocular movements grossly intact. Moist buccal mucosa. Head is atraumatic, normocephalic. ABDOMEN: Soft. Nondistended. NEUROLOGIC: Alert and oriented. Cranial nerves II through XII grossly intact. ASSESSMENT: 1. Small bowel obstruction likely secondary to adhesions. Resolved PLAN: -Patient is stable for discharge -Continue chopped diet, low fiber Physician Computer Technical Specialist note has been reviewed by physician. Signing provider agrees with the documented findings, assessment, and plan of care. Objective - Vital Signs Vital signs: Vital Signs Temp 97.8 F 05/16/22 07:11 Pulse 73 05/16/22 08:30 Resp 16 05/16/22 08:30 BP 116/70 05/16/22 07:11 Pulse Ox 97 05/16/22 07:11 FiO2 Intake & Output 05/15/22 05/16/22 05/16/22 18:59 06:59 18:59 Intake Total 360 Output Total 800 Balance -440 Intake: Oral 360 Output: Urine 800 Other: Voiding Method Toilet Toilet Toilet Urinal Urinal Urinal # Voids 1 # Bowel Movements 1 - Labs CBC & Chem 7: 05/15/22 05:39 05/15/22 05:39
--- NOTE | 2022-05-16 15:25 | P.DS ---
Providers Date of admission: 05/12/22 10:30 Expected date of discharge: 05/16/22 Attending physician: Roxie Tesfaye DO Consults: 05/12/22 10:30 Consult Physician Urgent Consulting Provider: Fer Carney Consult Reason/Comments: Partial small bowel obstruction Do you want consulting provider notified?: Yes Primary care physician: Emanuel Wade Hospital Course: Discharge Diagnosis: Partial small bowel obstruction, appears resolved Leukocytosis, likely reactive, resolved Elevated blood pressure without diagnosis of hypertension, resolved Lactic acidosis, resolved Hospital Course: Patient is a 77-year-old male with prior prostate cance s/p robotic prostatectomy in 2006 who presented to the ED for epigastric pain and intractable nausea and vomiting. Patient reports vague abdominal pain that has been ongoing for the past week. Yesterday, his pain acutely worsened after eating dinner at [employer]. In the ER he underwent extensive evaluation. He was noted to be hypertensive with BP 183/82 and pulse of 114. CBC was benign. CMP showed sodium of 135, bicarb of 21, glucose 177. Lactic acid was 3.2. Urinalysis showed 3+ ketone. CT abdomen and pelvis demonstrated showed partial distal small bowel obstruction. Patient is admitted for further workup and management of bowel obstruction. NG tube was placed to suction which relieved his abdominal pain and vomiting. Surgery was consulted. Patient underwent all bowel follow-through on 05/14/22 which did not demonstrate any signs of obstruction. He began having bowel movements. He did well as his diet was advanced. He continued to have bowel movements. He was determined stable for discharge home. He will follow-up with his primary care physician. He has had a recent colonoscopy and falls on a regular basis. Follow-up: PCP in 1 week, low fiber diet for now and increase fiber, goal of bowel movement every 1-2 days. Patient seen and examined at bedside. He is eating and drinking well. No additional vomiting. No cramping. Having bowel movements with a mostly liquid. Vital signs reviewed and stable. General: nontoxic, no distress, appears at stated age Derm: warm, dry Head: atraumatic, normocephalic, symmetric Eyes: EOMI, no lid lag, anicteric sclera Mouth: no lip lesion, mucus membranes moist Cardiovascular: S1S2 reg, no murmur, positive posterior tibial pulse bilateral, Lungs: CTA bilateral, no rhonchi, no rales , no accessory muscle use Abdominal: soft, nontender to palpation, no guarding, no appreciable organom egaly Ext: no gross muscle atrophy, no edema, no contractures Neuro: CN II-XI grossly intact, no focal neuro deficits Psych: Alert, oriented, appropriate affect A total of 25 minutes of time were spent preparing this complex discharge summary. Patient was discharged on 05/16/22. Plan - Discharge Summary Discharge Rx Participant: Yes New Discharge Prescriptions: Continue Multivitamins, Thera [Multivitamin (formulary)] 1 tab PO HS Apalutamide [Erleada] 60 mg PO TUTHSA@0900 Cholecalciferol [Vitamin D3 (125 Mcg = 5000 Iu)] 125 mcg PO HS Apalutamide [Erleada] 120 mg PO SUMOWEFR@0900 Discharge Medication List Apalutamide [Erleada] 60 mg PO TUTHSA@0900 05/12/22 [History] Apalutamide [Erleada] 120 mg PO SUMOWEFR@0900 05/12/22 [History] Cholecalciferol [Vitamin D3 (125 Mcg = 5000 Iu)] 125 mcg PO HS 05/12/22 [History] Multivitamins, Thera [Multivitamin (formulary)] 1 tab PO HS 05/12/22 [History] Follow up Appointment(s)/Referral(s): Emanuel Wade DO [Primary Care Provider] - 1-2 days (PLEASE CALL AND SCHEDULE APPOINTMENT.) Patient Instructions/Handouts: Low Fiber Diet (DC), Bowel Obstruction (DC) Activity/Diet/Wound Care/Special Instructions: Activity: as tolerated Diet: low fiber diet X 1 week, then increase fiber Special Instructions: Thank you for allowing us to participate in your care, we wish you well on your journey to better health Discharge Disposition: HOME SELF-CARE
== END 2022-05-16 11:09 | disposition home or self-care (01) | DRG 389 ==
LOC: SUPCPDRO 03:18 → EC 03:18 → 5NMEDONC 10:30
PROVIDERS: ADMIT Internal Medicine; ATTEND Internal Medicine
PROC: 0D9670Z Drainage of Stomach with Drainage Device, Via Natural or Artificial Opening (ICD-10-PCS; principal; 2022-05-12)
DX: K56.51 Intestinal adhesions [bands], with partial obstruction (principal); E87.20 Acidosis, unspecified; R11.2 Nausea with vomiting, unspecified; F29 Unspecified psychosis not due to a substance or known physiological condition; R03.0 Elevated blood-pressure reading, without diagnosis of hypertension; Z85.46 Personal history of malignant neoplasm of prostate; Z88.2 Allergy status to sulfonamides; Z90.79 Acquired absence of other genital organ(s); Z87.891 Personal history of nicotine dependence
CPT/HCPCS: 36415; 74019; 74177; 74250; 80048; 80053; 81001; 82150; 83605; 83690; 85025; 85027; 96361; 96374; 96375; 99285

== ENCOUNTER 2023-05-20 09:42 | Inpatient (IN) | payer MEDICARE ==
--- NOTE | 2023-05-20 10:12 | ED ---
General Adult HPI - General Chief complaint: Extremity Problem,Nontraumatic Stated complaint: L leg edema Time Seen by Provider: 05/20/23 09:55 Source: patient, RN notes reviewed, old records reviewed Mode of arrival: ambulatory Limitations: no limitations - History of Present Illness Initial comments: This is a 78-year-old male presents emergency Department complaining of left leg swelling and pressure throughout the whole leg down to his foot. Patient states it started 3 days ago and got progressively worse per patient denies any chest pain difficulty breathing or shortness of breath. Patient denies any fever chills per patient denies any injury to light. Patient does have a history of prostate cancer. - Related Data Home Medications Medication Instructions Recorded Confirmed Apalutamide [Erleada] 60 mg PO TUTHSA@0900 05/12/22 05/20/23 Apalutamide [Erleada] 120 mg PO SUMOWEFR@0900 05/12/22 05/20/23 Cholecalciferol [Vitamin D3 (125 125 mcg PO HS 05/12/22 05/20/23 Mcg = 5000 Iu)] Multivitamins, Thera [Multivitamin 1 tab PO HS 05/12/22 05/20/23 (formulary)] Allergies Allergy/AdvReac Type Severity Reaction Status Date / Time Sulfa (Sulfonamide Allergy Anaphylaxis Verified 05/20/23 11:28 Antibiotics) Review of Systems ROS Statement: Those systems with pertinent positive or pertinent negative responses have been documented in the HPI. ROS Other: All systems not noted in ROS Statement are negative. Past Medical History Past Medical History: Cancer Additional Past Medical History / Comment(s): prostate cancer History of Any Multi-Drug Resistant Organisms: None Reported Past Surgical History: Prostate Surgery, Tonsillectomy Past Anesthesia/Blood Transfusion Reactions: No Reported Reaction Past Psychological History: No Psychological Hx Reported Smoking Status: Former smoker Past Alcohol Use History: None Reported Past Drug Use History: None Reported - Past Family History Mother Family Medical History: Cancer Additional Family Medical History / Comment(s): from leukemia Sister(s) Family Medical History: Cancer Additional Family Medical History / Comment(s): breast cancer General Exam - General Exam Comments Initial Comments: GENERAL: Patient is well-developed and well-nourished. Patient is nontoxic and well- hydrated and is in mild distress. ENT: Neck is soft and supple. No significant lymphadenopathy is noted. Oropharynx is clear. Moist mucous membranes. Neck has full range of motion without e liciting any pain. EYES: The sclera were anicteric and conjunctiva were pink and moist. Extraocular movements were intact and pupils were equal round and reactive to light. Eyelids were unremarkable. PULMONARY: Unlabored respirations. Good breath sounds bilaterally. No audible rales rhonchi or wheezing was noted. CARDIOVASCULAR: There is a regular rate and rhythm without any murmurs gallops or rubs. ABDOMEN: Soft and nontender with normal bowel sounds. SKIN: Skin is clear with no lesions or rashes and otherwise unremarkable. NEUROLOGIC: Patient is alert and oriented x3. Cranial nerves II through XII are grossly intact. Motor and sensory are also intact. Normal speech, volume and content. Symmetrical smile. MUSCULOSKELETAL: Patient's leg is very swollen from the hip down to the foot. Patient has slower than normal cap refill but does have Refill at about 2 seconds. LYMPHATICS: No significant lymphadenopathy is noted PSYCHIATRIC: Normal psychiatric evaluation. Limitations: no limitations Course Vital Signs 05/20/23 05/20/23 09:47 11:21 Temperature 98.8 F Pulse Rate 102 H 93 Respiratory 20 18 Rate Blood Pressure 121/76 119/77 O2 Sat by Pulse 99 99 Oximetry Medical Decision Making - Medical Decision Making Was pt. sent in by a medical professional or institution (ROHAN Ortega, [employer], urgent care, hospital, or jail...) When possible be specific @ -Sent in by his oncologist Did you speak to anyone other than the patient for history (EMS, parent, family, police, friend...)? What history was obtained from this source @ -I did speak with the oncologist prior to the patient's arrival for past medical history Did you review nursing and triage notes (agree or disagree)? Why? @ -I reviewed and agree with nursing and triage notes Were old charts reviewed (outside hosp., previous admission, EMS record, old EKG, old radiological studies, urgent care reports/EKG's, jail records)? Report findings @ -Review prior charts in prior lab on this patient Differential Diagnosis (chest pain, altered mental status, abdominal pain women, abdominal pain men, vaginal bleeding, weakness, fever, dyspnea, syncope, headache, dizziness, GI bleed, back pain, seizure, CVA, palpatations, mental health, musculoskeletal)? @ -DVT, cellulitis, musculoskeletal injury, is not all inclusive list EKG interpreted by me (3pts min.). @ -As above X-rays interpreted by me (1pt min.). @ -None done CT interpreted by me (1pt min.). @ -None done U/S interpreted by me (1pt. min.). @ -Patient's ultrasound showed a DVT from the common femoral vein to the calf veins What testing was considered but not performed or refused? (CT, X-rays, U/S, labs)? Why? @ -No What meds were considered but not given or refused? Why? @ -None Did you discuss the management of the patient with other professionals (professionals i.e. , PA, [employer] SAL[employer]ERSON, lab, RT, psych nurse, social media executive, landscape laborer, teacher, gunnery/ordnance officer, case operator)? Give summary @ -I spoke with Dr. Camara he agreed to admit the patient he wanted vascular consult as well Was smoking cessation discussed for >3mins.? @ -No Was critical care preformed (if so, how long)? @ -35 minutes Were there social determinants of health that impacted care today? How? (Homelessness, low income, unemployed, alcoholism, drug addiction, tr ansportation, low edu. Level, literacy, decrease access to med. care, correction, rehab)? @ -No Was there de-escalation of care discussed even if they declined (Discuss DNR or withdrawal of care, Hospice)? DNR status @ -No What co-morbidities impacted this encounter? (DM, HTN, Smoking, COPD, CAD, Cancer, CVA, ARF, Chemo, Hep., AIDS, mental health diagnosis, sleep apnea, morbid obesity)? @ -None Was patient admitted / discharged? Hospital course, mention meds given and route, prescriptions, significant lab abnormalities, going to OR and other pertinent info. @ -Patient had not shown showed positive acute DVT. Patient will be started on heparin. Patient be admitted, volume and per his request vascular will be consulted Undiagnosed new problem with uncertain prognosis? @ -No Drug Therapy requiring intensive monitoring for toxicity (Heparin, Nitro, Insulin, Cardizem)? @ -No Were any procedures done? @ -No Diagnosis/symptom? @ -Acute DVT Acute, or Chronic, or Acute on Chronic? @ -Acute Uncomplicated (without systemic symptoms) or Complicated (systemic symptoms)? @ -Complicated Side effects of treatment? @ -No Exacerbation, Progression, or Severe Exacerbation? @ -No Poses a threat to life or bodily function? How? (Chest pain, [place], [place], pneumonia, PE, COPD, DKA, ARF, appy, cholecystitis, CVA, Diverticulitis, Homicidal, Suicidal, threat to staff... and all critical care pts) @ -Yes this can lead to a PE and - Lab Data Result diagrams: 05/20/23 11:09 05/20/23 11:09 Lab Results 05/20/23 05/20/23 05/20/23 Range/Units 11:09 11:09 11:09 WBC 13.5 H (3.8-10.6) k/uL RBC 3.95 L (4.30-5.90) m/uL Hgb 12.6 L (13.0-17.5) gm/dL Hct 37.6 L (39.0-53.0) % MCV 95.3 (80.0-100.0) fL MCH 32.0 (25.0-35.0) pg MCHC 33.6 (31.0-37.0) g/dL RDW 12.6 (11.5-15.5) % Plt Count 267 (150-450) k/uL MPV 7.8 Neutrophils % 90 % Lymphocytes % 3 % Monocytes % 4 % Eosinophils % 0 % Basophils % 0 % Neutrophils # 12.1 H (1.3-7.7) k/uL Lymphocytes # 0.5 L (1.0-4.8) k/uL Monocytes # 0.6 (0-1.0) k/uL Eosinophils # 0.0 (0-0.7) k/uL Basophils # 0.0 (0-0.2) k/uL PT 10.7 (10.0-12.5) sec INR 1.0 (<1.2) APTT 28.1 (22.0-30.0) sec Sodium 137 (137-145) mmol/L Potassium 4.5 (3.5-5.1) mmol/L Chloride 105 (98-107) mmol/L Carbon Dioxide 19 L (22-30) mmol/L Anion Gap 13 mmol/L BUN 21 H (9-20) mg/dL Creatinine 0.85 (0.66-1.25) mg/dL Est GFR (CKD-EPI)AfAm >90 (>60 ml/min/1.73 sqM) Est GFR (CKD-EPI)NonAf 85 (>60 ml/min/1.73 sqM) Glucose 116 H (74-99) mg/dL Calcium 9.8 (8.4-10.2) mg/dL Total Bilirubin 0.7 (0.2-1.3) mg/dL AST 20 (17-59) U/L ALT 15 (4-49) U/L Alkaline Phosphatase 102 (38-126) U/L Total Protein 7.0 (6.3-8.2) g/dL Albumin 4.3 (3.5-5.0) g/dL Disposition Clinical Impression: Deep vein thrombosis (DVT) of lower extremity Disposition: ADMITTED IP TO THIS HOSP Referrals: Emanuel Wade DO [Primary Care Provider] - 1-2 days Time of Disposition: 13:12
[2023-05-20] MEDS ORDERED: HEPARIN SODIUM 1,000 UN/ML (10ML VL) IV ONE (11:03)
--- NOTE | 2023-05-20 11:05 | US ---
EXAMINATION TYPE: US venous doppler duplex LE LT DATE OF EXAM: 05/20/2023 10:58 AM COMPARISON: NONE CLINICAL INDICATION: Male, 78 years old with history of Swollen painful left leg; Left leg has been s welling for 3 days and is getting worse, no h/o dvt, not on thinners, in injury SIDE PERFORMED: Left TECHNIQUE: The lower extremity deep venous system is examined utilizing real time linear array sonog jesse with graded compression, doppler sonography and color-flow sonography. VESSELS IMAGED: Common Femoral Vein Deep Femoral Vein Greater Saphenous Vein * Femoral Vein Popliteal Vein Small Saphenous Vein * Proximal Calf Veins (* superficial vessels) Left Leg: Internal echoes that do not compress with no color flow detected, probable acute DVT from proximal calf vein extending up through left CFV IMPRESSION: Deep vein thrombosis of the left lower extremity extending from the common femoral vein to the proximal calf veins. Findings communicated to Dr. Jamal Reyes MD on 05/20/2023 11:[address] Yuval Campoverde.
[2023-05-20] MEDS: HEPARIN SOD,PORK IN 0.45% NACL 25,000 UNIT in 0.45% NACL 1 250ML.BAG IV SCH (11:20)
[2023-05-20 11:33] LABS: Basophils % (A) 0 %; Eosinophils % (A) 0 %; HCT 37.6 % (39.0-53.0); HGB 12.6 gm/dL (13.0-17.5); Lymphocytes # (A) 0.5 k/uL (1.0-4.8); Lymphocytes % (A) 3 %; MCHC 33.6 g/dL (31.0-37.0); MCV 95.3 fL (80.0-100.0); Mean Platelet Volume 7.8; Monocytes # (A) 0.6 k/uL (0-1.0); Monocytes % (A) 4 %; Neutrophils # (A) 12.1 k/uL (1.3-7.7); Neutrophils % (A) 90 %; Platelet Count 267 k/uL (150-450); RBC 3.95 m/uL (4.30-5.90); RDW 12.6 % (11.5-15.5); WBC 13.5 k/uL (3.8-10.6)
[2023-05-20 11:41] LABS: ALT 15 U/L (4-49); AST 20 U/L (17-59); African American GFR (CKD) >90 (>60 ml/min/1.73 sqM); Albumin 4.3 g/dL (3.5-5.0); Alkaline Phosphatase 102 U/L (38-126); Anion Gap 13 mmol/L; Blood Urea Nitrogen 21 mg/dL (9-20); Calcium 9.8 mg/dL (8.4-10.2); Carbon Dioxide 19 mmol/L (22-30); Chloride 105 mmol/L (98-107); Glucose 116 mg/dL (74-99); Non-African American GFR(CKD) 85 (>60 ml/min/1.73 sqM); Potassium 4.5 mmol/L (3.5-5.1); Sodium 137 mmol/L (137-145); Total Bilirubin 0.7 mg/dL (0.2-1.3)
[2023-05-20 12:01] LABS: Prothrombin Time 10.7 sec (10.0-12.5)
[2023-05-20 12:02] LABS: Partial Thromboplastin Time 28.1 sec (22.0-30.0)
--- NOTE | 2023-05-20 16:01 | P.GSCN ---
History of Present Illness Consult date: 05/20/23 Reason for Consult: Left Lower extremity DVT Requesting physician: Jamal Reyes History of present illness: Patient is a 78-year-old male who presented to the emergency department with concerns for left lower extremity swelling. States it started a few days ago and progressively has gotten worse. States he had been exercising and he noticed some tightening in his knee and thought it was from exercising. He then noticed some lower extremity swelling last week which progressively got worse. He then drove to [place] Saturday and then noticed even more swelling over the weekend. She came in today for further evaluation. He had a venous duplex of the left lower extremity that was positive for DVT, and vascular surgery was consulted. No history of previous DVT or pulmonary embolism. No history of clotting disorder. He does have prostate cancer and was started on Erleada 60 mg daily which his states blood clots is a side effect. He states there is tightness but no pain down the left lower extremity. Has no shortness of breath or chest pain. He has been started on a heparin drip. Review of Systems A 14 point review systems was completed all pertinent positives and negatives as stated in the HPI. Past Medical History Past Medical History: Cancer Additional Past Medical History / Comment(s): prostate cancer History of Any Multi-Drug Resistant Organisms: None Reported Past Surgical History: Prostate Surgery, Tonsillectomy Past Anesthesia/Blood Transfusion Reactions: No Reported Reaction Past Psychological History: No Psychological Hx Reported Smoking Status: Former smoker Past Alcohol Use History: None Reported Past Drug Use History: None Reported - Past Family History Mother Family Medical History: Cancer Additional Family Medical History / Comment(s): from leukemia Sister(s) Family Medical History: Cancer Additional Family Medical History / Comment(s): breast cancer Medications and Allergies Home Medications Medication Instructions Recorded Confirmed Type Apalutamide [Erleada] 60 mg PO TUTHSA@89905/12/22 05/20/23 History Apalutamide [Erleada] 120 mg PO SUMOWEFR@89905/12/22 05/20/23 History Cholecalciferol [Vitamin D3 (125 125 mcg PO HS 05/12/22 05/20/23 History Mcg = 5000 Iu)] Multivitamins, Thera [Multivitamin 1 tab PO HS 05/12/22 05/20/23 History (formulary)] Allergies Allergy/AdvReac Type Severity Reaction Status Date / Time Sulfa (Sulfonamide Allergy Anaphylaxis Verified 05/20/23 11:28 Antibiotics) Surgical - Exam Vital Signs Temp Pulse Resp BP Pulse Ox 98.8 F 102 H 20 121/76 99 05/20/23 09:47 05/20/23 09:47 05/20/23 09:47 05/20/23 09:47 05/20/23 09:47 General appearance: The patient is alert, oriented, appears in no acute distr ess. HET: Head is normocephalic and atraumatic. Neck: Supple. Heart: Regular. Lungs: Equal expansion, normal respiratory effort. Abdomen: Soft, nontender, nondistended. Extremities: Left lower extremity swelling from thigh down to foot. Some possible cyanotic changes to the toes with good capillary refill and palpable DP pulse. Neurological: No focal deficits. Strength and sensation are grossly intact. Results - Labs 05/20/23 11:09 05/20/23 11:09 Abnormal Lab Results - Last 24 Hours (Table) 05/20/23 05/20/23 Range/Units 11:09 11:09 WBC 13.5 H (3.8-10.6) k/uL RBC 3.95 L (4.30-5.90) m/uL Hgb 12.6 L (13.0-17.5) gm/dL Hct 37.6 L (39.0-53.0) % Neutrophils # 12.1 H (1.3-7.7) k/uL Lymphocytes # 0.5 L (1.0-4.8) k/uL Carbon Dioxide 19 L (22-30) mmol/L BUN 21 H (9-20) mg/dL Glucose 116 H (74-99) mg/dL Diabetes panel 05/20/23 Range/Units 11:09 Sodium 137 (137-145) mmol/L Potassium 4.5 (3.5-5.1) mmol/L Chloride 105 (98-107) mmol/L Carbon Dioxide 19 L (22-30) mmol/L BUN 21 H (9-20) mg/dL Creatinine 0.85 (0.66-1.25) mg/dL Glucose 116 H (74-99) mg/dL Calcium 9.8 (8.4-10.2) mg/dL AST 20 (17-59) U/L ALT 15 (4-49) U/L Alkaline Phosphatase 102 (38-126) U/L Total Protein 7.0 (6.3-8.2) g/dL Albumin 4.3 (3.5-5.0) g/dL Calcium panel 05/20/23 Range/Units 11:09 Calcium 9.8 (8.4-10.2) mg/dL Albumin 4.3 (3.5-5.0) g/dL Pituitary panel 05/20/23 Range/Units 11:09 Sodium 137 (137-145) mmol/L Potassium 4.5 (3.5-5.1) mmol/L Chloride 105 (98-107) mmol/L Carbon Dioxide 19 L (22-30) mmol/L BUN 21 H (9-20) mg/dL Creatinine 0.85 (0.66-1.25) mg/dL Glucose 116 H (74-99) mg/dL Calcium 9.8 (8.4-10.2) mg/dL Adrenal panel 05/20/23 Range/Units 11:09 Sodium 137 (137-145) mmol/L Potassium 4.5 (3.5-5.1) mmol/L Chloride 105 (98-107) mmol/L Carbon Dioxide 19 L (22-30) mmol/L BUN 21 H (9-20) mg/dL Creatinine 0.85 (0.66-1.25) mg/dL Glucose 116 H (74-99) mg/dL Calcium 9.8 (8.4-10.2) mg/dL Total Bilirubin 0.7 (0.2-1.3) mg/dL AST 20 (17-59) U/L ALT 15 (4-49) U/L Alkaline Phosphatase 102 (38-126) U/L Total Protein 7.0 (6.3-8.2) g/dL Albumin 4.3 (3.5-5.0) g/dL - Imaging Comments: History duplex left lower extremity: Deep vein thrombosis of the left lower extremity extending from the common femoral vein to the proximal calf veins Assessment and Plan Assessment: 1. Extensive Left lower extremity DVT 2. Prostate cancer on Erleada Plan: 1. Continue heparin infusion as ordered 2. CT angiogram abdomen and pelvis venous phase ordered 3. Elevate left lower extremity 4. Recommend RONAL hose stocking 5. Further recommendations forthcoming per vascular surgeon For this consultation, we will continue to follow. The impression and plan of care has been dictated as directed. I performed a history and examination of this patient, discussed the same with the dictator. I agree with the dictator's note ,documented as a scribe. Any additional findings or plans will be noted.
--- NOTE | 2023-05-20 18:36 | CT ---
EXAMINATION TYPE: CT angio abdomen pelvis CT DLP: 2340.4 mGycm, Automated exposure control for dose reduction was used. DATE OF EXAM: 05/20/2023 5:28 PM COMPARISON: 07/08/2023. Ultrasound 05/20/2023. CLINICAL INDICATION:Male, 78 years old with history of Extensive left lower DVT, further evaluation; PHH, Extensive left lower DVT, further evaluation TECHNIQUE: Multiple thin slice sub-millimeter images were obtained after administration of contrast. 3-D reconstructed images and maximum intensity projection images were obtained. CT angio abdomen pel vis CT Contrast: Contrast used:100 ml mL of Isovue 370 with IV Contrast, Oral contrast used: without Oral Contrast None FINDINGS: LOWER CHEST: No evidence of focal consolidation, pneumothorax or pleural effusion. LIVER: Unremarkable GALLBLADDER AND BILE DUCTS: Unremarkable. PANCREAS: Unremarkable. SPLEEN: Unremarkable. ADRENAL GLANDS: Unremarkable. KIDNEYS AND URETERS: No evidence of hydronephrosis or renal calculus. The ureters are unremarkable. PELVIS BLADDER: Unremarkable REPRODUCTIVE: The prostate gland appears surgically absent. ABDOMEN & PELVIS STOMACH AND BOWEL: No evidence of bowel obstruction. PERITONEUM: No evidence of pneumoperitoneum or free fluid. VASCULATURE: No evidence of aortic aneurysm. Filling defect is seen within the deep vasculature of th e pelvis including the of the confluence of the left common iliac vein extending into the internal/ex ternal iliac veins. Extension into the common iliac vein and extends approximately 18 mm. Arterial vasculature is patent. There is scattered atherosclerotic disease throughout the arterial va sculature. No thrombus is seen within the inferior vena cava. MUSCULOSKELETAL: No acute osseous abnormalities LYMPH NODES: No gross evidence for there is a outpouching near the confluence appears technique with the deep vasculature and possibly relating to the thrombosis vascular structure alternatively lymph n ode could be considered. Series 601 image 137. SOFT TISSUE/ABDOMINAL WALL: Left lower extremity is edematous. Fat-containing abdominal wall ventral hernia and umbilical hernia. IMPRESSION Deep vein thrombosis at the confluence to create the left common iliac vein including left external a nd internal iliac veins as well as this short segment within the common iliac vein itself measuring a pproximately 18 mm in length. There is a focal outpouching near the confluence unclear with another v ascular structure or a lymph node. No evidence for thrombus within the inferior vena cava.
[2023-05-20] MEDS: MULTIVITAMINS, THERA 1 EACH TAB PO SCH (20:45)
[2023-05-20] MEDS: CHOLECALCIFEROL 125 MCG (5000 IU) TABLET PO SCH (20:45)
--- NOTE | 2023-05-21 00:20 | HP ---
HISTORY AND PHYSICAL HISTORY OF PRESENT ILLNESS: Jennifer Grijalva is a 78-year-old white male, admitted for acute DVT of the left common iliac artery, external iliac veins measuring 18 mm, confluence of another structure lymph nodes, left lower leg is edematous, containing abdominal wall ventral hernia, umbilical hernia. He was admitted with acute DVT in the lower extremities. Seen by vascular surgeon, 78-year-old male came in with severe left lower extremity worsening swelling. Positive for DVT tightening in his knee, he drove from [place] Saturday. He has history of prostate cancer started on Erleada 60 mg daily. PAST HISTORY: Prostate cancer, prostate surgery, tonsillectomy, former smoker. FAMILY HISTORY: Cancer, leukemia of his mom, sister cancer, breast cancer. HOME MEDICATIONS: Erleada 60 mg Saturday, , Saturday and 120 mg Saturday, Saturday, Saturday, Saturday. ALLERGIES: Sulfa. PHYSICAL EXAMINATION: VITAL SIGNS: Pulse 102, respiratory rate 18 to 20, blood pressure 121/76, O2 99, temp 98.8. HEENT: Normocephalic, atraumatic. LUNGS: Equal expansion. Normal expiratory affect. ABDOMEN: Soft, nontender. EXTREMITIES: Left lower extremity swelling, cyanotic changes. Capillary refill poor neurologic cranial nerves intact. White count 13.5, hemoglobin is 12.6, BUN is 21, creatinine 0.85. Extensive left lower extremity DVT, prostate cancer, on Erleada. Continue on heparin. CT angiogram further recommendations per vascular surgery. Continue with broad-spectrum anticoagulants. MMODL / IJN: [id number] /
[2023-05-21] MEDS: HEPARIN SOD,PORK IN 0.45% NACL 25,000 UNIT in 0.45% NACL 1 250ML.BAG IV SCH (06:37)
[2023-05-21] MEDS: APALUTAMIDE 60 MG PO SCH (08:51)
[2023-05-21 09:03] LABS: Basophils # (A) 0.03 X 10*3/uL (0.00-0.10); Basophils % (A) 0.3 %; Eosinophils # (A) 0.09 X 10*3/uL (0.04-0.35); Eosinophils % (A) 0.8 %; HCT 33.6 % (39.6-50.0); HGB 10.9 g/dL (13.0-17.0); Lymphocytes # (A) 0.73 X 10*3/uL (0.90-5.00); Lymphocytes % (A) 6.7 %; MCH 31.1 pg (27.0-32.0); MCHC 32.4 g/dL (32.0-37.0); MCV 95.7 FL (80.0-97.0); Mean Platelet Volume 9.8 FL (9.5-12.2); Monocytes # (A) 1.02 X 10*3/uL (0.20-1.00); Monocytes % (A) 9.4 %; NRBC Per 100 WBC 0 X 10*3/uL (0.00-0.01); Neutrophils # (A) 8.87 X 10*3/uL (1.80-7.70); Neutrophils % (A) 81.9 %; Platelet Count 270 X 10*3/uL (140-440); RBC 3.51 X 10*6/uL (4.40-5.60); RDW 12.5 % (11.5-14.5); WBC 10.84 X 10*3/uL (4.50-10.00)
--- NOTE | 2023-05-21 10:26 | P.PN ---
Subjective Progress Note Date: 05/21/23 Principal diagnosis: Extensive left lower extremity DVT Patient is seen and examined as a follow-up. He has extensive left lower extremity deep vein thrombosis. He remains on IV heparin infusion. Continues to have significant left lower extremity swelling. Denies any shortness of breath or chest pain. He is afebrile. He had a CTA abdomen and pelvis venous phase completed yesterday with findings of deep vein thrombosis at the confluence to create the left common iliac vein including left external and internal iliac vein as well as the short segment within the common iliac vein itself measuring approximately 18 mm in length. Focal outpouching near the confluence unclear with another vascular structure or a lymph node. No evidence for thrombus within the inferior vena cava. Objective - Vital Signs Vital signs: Vital Signs Temp 98.8 F 05/20/23 09:47 Pulse 72 05/21/23 05:00 Resp 16 05/21/23 05:00 BP 118/76 05/21/23 05:00 Pulse Ox 94 L 05/21/23 05:00 FiO2 Intake & Output 05/20/23 05/21/23 05/21/23 18:59 06:59 18:59 Intake Total 236.807 Balance 236.807 Weight 74.843 kg Intake: Intake, IV Titration 236.807 Amount Heparin Sod,Pork in 0.45% 236.807 NaCl 25,000 unit In 0.45 % NaCl 1 250ml.bag @ 18 UNITS/KG/HR 13.472 mls/hr IV .[id number] [facility] Rx#: [id number] - Exam General appearance: The patient is alert, oriented, appears in no acute distress. HET: Head is normocephalic and atraumatic. Neck: Supple. Heart: Regular. Lungs: Equal expansion, normal respiratory effort. Abdomen: Soft, nontender, nondistended. Extremities: Left lower extremity with significant swelling from groin to but with some mild erythema. Good capillary refill and palpable DP pulse. Neurological: No focal deficits. Strength and sensation are grossly intact. - Labs CBC & Chem 7: 05/21/23 05:21 05/20/23 11:09 Labs: Abnormal Lab Results - Last 24 Hours (Table) 05/20/23 05/20/23 05/20/23 Range/Units 11:09 11:09 17:28 WBC 13.5 H (3.8-10.6) k/uL RBC 3.95 L (4.30-5.90) m/uL Hgb 12.6 L (13.0-17.5) gm/dL Hct 37.6 L (39.0-53.0) % Neutrophils # 12.1 H (1.3-7.7) k/uL Lymphocytes # 0.5 L (1.0-4.8) k/uL APTT 84.4 H (22.0-30.0) sec Carbon Dioxide 19 L (22-30) mmol/L BUN 21 H (9-20) mg/dL Glucose 116 H (74-99) mg/dL 05/21/23 05/21/23 Range/Units 00:36 05:21 WBC (3.8-10.6) k/uL RBC (4.30-5.90) m/uL Hgb (13.0-17.5) gm/dL Hct (39.0-53.0) % Neutrophils # (1.3-7.7) k/uL Lymphocytes # (1.0-4.8) k/uL APTT 83.8 H 73.2 H (22.0-30.0) sec Carbon Dioxide (22-30) mmol/L BUN (9-20) mg/dL Glucose (74-99) mg/dL Assessment and Plan Assessment: 1. Extensive Left lower extremity DVT 2. Prostate cancer on Erleada Plan: 1. Continue heparin infusion as ordered, full 2 hours prior to thrombectomy 2. CT angiogram abdomen and pelvis venous phase ordered and reviewed 3. Elevate left lower extremity 4. Recommend RONAL hose stocking 5. Plan for left lower extremity percutaneous thrombectomy tomorrow 05/22/2023 6. Nothing by mouth after midnight For this consultation, we will continue to follow. The impression and plan of care has been dictated as directed. Dr. Laboy I performed a history and examination of this patient, discussed the same with the dictator. I agree with the dictator's note ,documented as a scribe. Any additional findings or plans will be noted.
[2023-05-21 10:43] LABS: ALT 10 U/L (10-49); AST 12 U/L (14-35); Albumin 3.9 g/dL (3.8-4.9); Albumin/Globulin Ratio 1.95 Ratio (1.60-3.17); Alkaline Phosphatase 85 U/L (41-126); Blood Urea Nitrogen 19.8 mg/dL (9.0-27.0); Calcium 9.4 mg/dL (8.7-10.3); Carbon Dioxide 20.3 mmol/L (21.6-31.8); Chloride 102 mmol/L (96-109); Glucose 103 mg/dL (70-110); Potassium 4.1 mmol/L (3.5-5.5); Sodium 135 mmol/L (135-145); Total Bilirubin 0.2 mg/dL (0.3-1.2); Total Protein 5.9 g/dL (6.2-8.2)
[2023-05-21] MEDS: MULTIVITAMINS, THERA 1 EACH TAB PO SCH (20:31)
[2023-05-21] MEDS: CHOLECALCIFEROL 125 MCG (5000 IU) TABLET PO SCH (20:31)
[2023-05-22] MEDS: HEPARIN SOD,PORK IN 0.45% NACL 25,000 UNIT in 0.45% NACL 1 250ML.BAG IV SCH ×2 (03:50→17:17)
[2023-05-22] MEDS ORDERED: EMPTY BAG 1 BAG with SODIUM CHLORIDE 0.9% 1,000 ML IV ONE (06:54)
[2023-05-22 08:13] LABS: HCT 33.5 % (39.0-53.0); HGB 11.3 gm/dL (13.0-17.5); MCHC 33.8 g/dL (31.0-37.0); MCV 97.6 fL (80.0-100.0); Mean Platelet Volume 7.7; Platelet Count 265 k/uL (150-450); RBC 3.43 m/uL (4.30-5.90); RDW 12.3 % (11.5-15.5); WBC 9.7 k/uL (3.8-10.6)
[2023-05-22] MEDS ORDERED: APALUTAMIDE 60 MG PO SCH (09:00)
[2023-05-22] MEDS: MIDAZOLAM 2 MG/2 ML VIAL IVP ONE ×2 (13:52→14:25)
[2023-05-22] MEDS: fentaNYL (PF) 50 MCG/1 ML VIAL IVP ONE ×5 (13:52→15:03)
[2023-05-22] MEDS ORDERED: LIDOCAINE 1% INJ 10MG/ML (20 ML MDV) SQ ONE (13:53)
[2023-05-22] MEDS ORDERED: SODIUM CHLORIDE 0.9% 1,000 ML IV ONE (13:59)
[2023-05-22] MEDS: HEPARIN SODIUM 1,000 UN/ML (10ML VL) IV ONE ×2 (14:08→14:26)
[2023-05-22] MEDS ORDERED: IOPAMIDOL-370 100ML BTL INJ ONE (15:12)
--- NOTE | 2023-05-22 15:48 | P.OP ---
Date of Procedure: 05/22/23 Description of Procedure: Preoperative diagnosis: Extensive left lower extremity thrombus, iliofemoral, se magnus left lower extremity swelling Postoperative diagnosis: Same, severe iliac vein compression Procedure: 1. Ultrasound-guided leftpopliteal vein access with permanent image storage 2. Left lower extremity venogram 3. Venacavogram 4. intravascular ultrasound left popliteal vein 5. Intravascular ultrasound left femoral vein 6. Intravascular ultrasound left external iliac vein 7. Intravascular ultrasound left common iliac vein 8. Intravascular ultrasound vena cava 9. Inari thrombectomy left common iliac to proximal femoral vein 10. Percutaneous transluminal balloon venoplasty external iliac to femoral vein, 10 x 40, 12 x 40, 14 x 40 balloon 11. Percutaneous transluminal stent placement of the external iliac vein [id number] Abre 12. Moderate conscious sedation x 163 minutes, direct monitoring of certified RN administration with personal hemodynamic monitoring 13. Fluoroscopic evaluation and interpretation Surgeon: Liliana Larios D.O. EBL: 50 mL IV fluids: See records Urine output: Not measured Drains: None Complications: None immediately apparent Condition: Stable to recovery Operative indication and findings: The patient is a 78 -year-old with findings and workup consistent with extensive iliofemoral DVT on the leftlower extremity. Due to this and the swelling along with pain, they were offered a mechanical thrombectomy, venogram, possible venoplasty and possible stent placement. Risks and benefits including but not limited to bleeding, infection, embolism and injury to the vessel were all discussed. The patient seemingly understood and was willing to proceed. Procedure in detail: The patient was taken to the Medical Device Assembler and placed in prone position. The popliteal area was prepped and draped in usual sterile fashion. A prepubertal timeout was performed, all parties were in agreement. The ultrasound was utilized to identify the left popliteal vein. It was found to be patent and compressibleat this level. The ultrasound was utilized and a permanent image was stored. Seldinger technique was used after direct cannulization with a micropuncture sheath and followed by an 8-Turkish sheath. An initial venogram was performed showing patent popliteal and femoral vein with occlusion and cessation of flow through the common femoral vein and iliac..Using catheters and wires, the area was traversed and confirmatory venacavogram was performed. The IVUS catheter was then passed up the popliteal vein, femoral vein, common femoral vein, external iliac vein, common iliac vein and into the vena cava. The vena cava was found to be patent. Catheters and wires were then used to place the catheter into the subclavian vein. The clot Treiver sheath was then placed into the popliteal vein. The Inari device was then selectively placed and mechanical thrombectomy was performed of the common and external iliac veins, the common femoral and femoral vein, and the popliteal vein. Multiple passes were made selectively into each vein treated. There was a significant amount of thrombus removed. Repeat IVUS was performed showing significant improvement of thrombus burden. There was abnormal appearance of the proximal common femoral vein. It appeared to be sluggish inflow on NANCY without significant evidence of thrombus on venogram There was some narrowing visualized with the thrombectomy device therefore therefore balloon venoplasty of the external iliac, common femoral vein was performed with a 10 x 40, 12 x 40 balloon. Upon repeat intravascular ultrasound, there was evidence of significant narrowing at the external iliac vein with no obvious significant thrombus, just sluggish flow, therefore 16 x 120 Abre stent was placed. The stent was venoplasty with a 14 x 40 balloon. Repeat intravascular ultrasound showed significant improvement. At this point all catheters and wires were removed. The sheath was removed and manual pressure was held. Dressings were placed along with compression to the lower extremity. Patient was transferred back to recovery in stable condition having tolerated the procedure well.
[2023-05-22] MEDS ORDERED: MORPHINE SULFATE 2 MG/ML SYRINGE IVP PRN (16:04)
[2023-05-22] MEDS ORDERED: HYDROcodone/APAP 5-325MG 1 EACH TAB PO PRN (16:04)
[2023-05-22] MEDS: ONDANSETRON 4 MG/2 ML VIAL IVP PRN (16:53)
[2023-05-22] MEDS ORDERED: diazePAM 5 MG TAB PO STA (19:02)
[2023-05-22] MEDS: CLOPIDOGREL 75 MG TAB PO SCH (20:22)
[2023-05-22] MEDS: CHOLECALCIFEROL 125 MCG (5000 IU) TABLET PO SCH (20:23)
[2023-05-22] MEDS: MULTIVITAMINS, THERA 1 EACH TAB PO SCH (20:23)
[2023-05-22 22:31] VITALS: RESP 19
--- NOTE | 2023-05-22 23:40 | PN ---
PROGRESS NOTE DATE OF SERVICE: 05/21/2023 SUBJECTIVE: A 78-year-old white male with progressive severe DVT in the entire leg of the left leg. He is going to get a thrombectomy today. Remains on IV blood thinners. His labs are stable. Hemoglobin is 10.9, white count is 10.84. No chest pain, or shortness of breath. OBJECTIVE: CARDIOVASCULAR: S1, S2. LUNGS: Clear. GI: Soft. EXTREMITIES: Shows large edema in the entire legs with redness in the upper calf area. He is going to get thrombectomy down tomorrow. Continue current treatment. Continued blood thinners. Risk factor modification. Continue medicines for his metastatic prostate cancer. MMODL / IJN: [id number] /
[2023-05-23] MEDS: HEPARIN SOD,PORK IN 0.45% NACL 25,000 UNIT in 0.45% NACL 1 250ML.BAG IV SCH (06:01)
[2023-05-23] MEDS ORDERED: LACTATED RINGERS 1,000 ML IV SCH (08:06)
--- NOTE | 2023-05-23 08:19 | P.PN ---
Subjective Progress Note Date: 05/23/23 Principal diagnosis: Extensive left lower extremity DVT Patient seen and examined today as a follow-up for extensive left lower extremity deep vein thrombosis. He is status post percutaneous thrombectomy of the left common iliac to proximal femoral vein, percutaneous balloon venoplasty of the external iliac to femoral vein and percutaneous transluminal stent placement of the external iliac vein. He is currently on IV heparin infusion. He's had no bleeding. He states he has no pain. He did has some significant postanesthesia nausea and vomiting. Left lower extremity with Blu wrap with significant reduction in swelling. Objective - Vital Signs Vital signs: Vital Signs Temp 98.3 F 05/23/23 04:00 Pulse 73 05/23/23 04:00 Resp 19 05/23/23 04:00 BP 137/71 05/23/23 04:00 Pulse Ox 99 05/23/23 04:00 FiO2 Intake & Output 05/22/23 05/23/23 05/23/23 18:59 06:59 18:59 Intake Total 180.506 148.613 Balance 180.506 148.613 Intake: IV 100 Intake, IV Titration 80.506 148.613 Amount Heparin Sod,Pork in 0.45% 80.506 148.613 NaCl 25,000 unit In 0.45 % NaCl 1 250ml.bag @ 18 UNITS/KG/HR 13.472 mls/hr IV .[id number] [facility] Rx#: [id number] Other: Voiding Method Toilet Toilet # Voids 1 - Exam General appearance: The patient is alert, oriented, appears in no acute distress. HET: Head is normocephalic and atraumatic. Neck: Supple. Heart: Regular. Lungs: Equal expansion, normal respiratory effort. Abdomen: Soft, nontender, nondistended. Extremities: Left lower extremity swelling improved. Palpable femoral and DP pulse. Popliteal access site with dressing clean, dry and intact with no surrounding hematoma or bleeding noted. Neurological: No focal deficits. Strength and sensation are grossly intact. - Labs CBC & Chem 7: 05/22/23 06:58 05/21/23 05:21 Labs: Abnormal Lab Results - Last 24 Hours (Table) 05/22/23 05/22/23 05/22/23 Range/Units 06:58 06:58 22:19 RBC 3.43 L (4.30-5.90) m/uL Hgb 11.3 L (13.0-17.5) gm/dL Hct 33.5 L (39.0-53.0) % APTT 56.0 H 51.0 H (22.0-30.0) sec 05/23/23 Range/Units 07:00 RBC (4.30-5.90) m/uL Hgb (13.0-17.5) gm/dL Hct (39.0-53.0) % APTT 50.7 H (22.0-30.0) sec Assessment and Plan Assessment: 1. Extensive Left lower extremity DVT status post thrombectomy, percutaneous transluminal balloon venoplasty and stent placement 2. Prostate cancer on Erleada Plan: 1. Discontinue heparin infusion and start Eliquis 10 mg twice a day, taper dose 2. Apply thigh-high RONAL hose to left lower extremity 3. Elevate left lower extremity 4. Activity as tolerated 5. Diet as tolerated 6. Patient to continue Plavix, aspirin 81 mg, will also be started. Patient will be on Plavix, aspirin, and Eliquis due to narrowing Thank you for this consultation. Patient is cleared from vascular surgery for discharge. The impression and plan of care has been dictated as directed. Dr. Larios I performed a history and examination of this patient, discussed the same with the dictator. I agree with the dictator's note ,documented as a scribe. Any additional findings or plans will be noted.
[2023-05-23] MEDS ORDERED: FAMOTIDINE 20 MG/2 ML VIAL IV SCH (09:00)
[2023-05-23] MEDS ORDERED: ASPIRIN 81 MG PO SCH (09:00)
[2023-05-23] MEDS ORDERED: Apixaban Initiation Dose--VTE 5 MG TAB PO SCH (09:00)
[2023-05-23] MEDS: ONDANSETRON 4 MG/2 ML VIAL IVP PRN (09:01)
[2023-05-23] MEDS: CLOPIDOGREL 75 MG TAB PO SCH (09:01)
[2023-05-23] MEDS: APALUTAMIDE 60 MG PO SCH (09:01)
[2023-05-23 11:25] VITALS: TEMP 97.9
[2023-05-23 16:13] VITALS: BP 93/46; PULSE 64
== END 2023-05-23 17:45 | disposition home or self-care (01) | DRG 271 ==
LOC: EC 09:42 → 5NMEDONC 13:18 → 3SCARD 05-21 10:58
PROVIDERS: ADMIT Family Medicine; ATTEND Family Medicine
PROC: 4A033B1 Measurement of Arterial Pressure, Peripheral, Percutaneous Approach (ICD-10-PCS; 2023-05-22)
PROC: 04CD3ZZ Extirpation of Matter from Left Common Iliac Artery, Percutaneous Approach (ICD-10-PCS; principal; 2023-05-22 13:30)
PROC: 04CJ3ZZ Extirpation of Matter from Left External Iliac Artery, Percutaneous Approach (ICD-10-PCS; 2023-05-22 13:30)
PROC: 04CN3ZZ Extirpation of Matter from Left Popliteal Artery, Percutaneous Approach (ICD-10-PCS; 2023-05-22 13:30)
PROC: 04CL3ZZ Extirpation of Matter from Left Femoral Artery, Percutaneous Approach (ICD-10-PCS; 2023-05-22 13:30)
PROC: 047J3DZ Dilation of Left External Iliac Artery with Intraluminal Device, Percutaneous Approach (ICD-10-PCS; 2023-05-22 13:30)
PROC: B51C1ZZ Fluoroscopy of Left Lower Extremity Veins using Low Osmolar Contrast (ICD-10-PCS; 2023-05-22 13:30)
PROC: B549ZZ3 Ultrasonography of Inferior Vena Cava, Intravascular (ICD-10-PCS; 2023-05-22 13:30)
DX: I82.412 Acute embolism and thrombosis of left femoral vein (principal); I87.1 Compression of vein; I82.422 Acute embolism and thrombosis of left iliac vein; K42.9 Umbilical hernia without obstruction or gangrene; K43.9 Ventral hernia without obstruction or gangrene; Z88.2 Allergy status to sulfonamides; Z85.46 Personal history of malignant neoplasm of prostate; Z87.891 Personal history of nicotine dependence; Z80.6 Family history of leukemia; Z80.3 Family history of malignant neoplasm of breast; Z79.899 Other long term (current) drug therapy
CPT/HCPCS: 36415; 37187; 37188; 37238; 37252; 37253; 74174; 75820; 76937; 80053; 85025; 85027; 85610; 85730; 86850; 86900; 86901; 96365; 96366; 99291

== ENCOUNTER 2023-05-24 11:12 | Observation (INO) | payer MEDICARE ==
[2023-05-24] MEDS ORDERED: ONDANSETRON 4 MG/2 ML VIAL IVP STA (11:32)
[2023-05-24] MEDS ORDERED: SODIUM CHLORIDE 0.9% 500 ML 500 ML IV STA (11:32)
--- NOTE | 2023-05-24 12:09 | XR ---
EXAMINATION TYPE: XR chest 1V portable DATE OF EXAM: 05/24/2023 COMPARISON: NONE HISTORY: Pain TECHNIQUE: Single frontal view of the chest is obtained. FINDINGS: There is no focal air space opacity, pleural effusion, or pneumothorax seen. The cardiac silhouette size is within normal limits. The osseous structures are intact. Subsegmental atelectasi s lung bases. Underlying COPD. Atherosclerotic change aorta. AC joint arthropathy. IMPRESSION: No acute process.
[2023-05-24 12:32] LABS: Basophils % (A) 0 %; Eosinophils % (A) 0 %; HCT 37.9 % (39.0-53.0); HGB 12.7 gm/dL (13.0-17.5); Lymphocytes # (A) 0.4 k/uL (1.0-4.8); Lymphocytes % (A) 3 %; MCH 32.1 pg (25.0-35.0); MCHC 33.5 g/dL (31.0-37.0); MCV 95.8 fL (80.0-100.0); Monocytes # (A) 0.5 k/uL (0-1.0); Monocytes % (A) 4 %; Neutrophils # (A) 13.7 k/uL (1.3-7.7); Neutrophils % (A) 94 %; Platelet Count 295 k/uL (150-450); RBC 3.96 m/uL (4.30-5.90); RDW 12.4 % (11.5-15.5); WBC 14.7 k/uL (3.8-10.6)
[2023-05-24 12:47] LABS: ALT 25 U/L (4-49); AST 33 U/L (17-59); African American GFR (CKD) >90 (>60 ml/min/1.73 sqM); Albumin 4.1 g/dL (3.5-5.0); Alkaline Phosphatase 108 U/L (38-126); Anion Gap 12 mmol/L; Blood Urea Nitrogen 16 mg/dL (9-20); Calcium 9.6 mg/dL (8.4-10.2); Carbon Dioxide 19 mmol/L (22-30); Chloride 106 mmol/L (98-107); Glucose 136 mg/dL (74-99); Non-African American GFR(CKD) 86 (>60 ml/min/1.73 sqM); Potassium 3.8 mmol/L (3.5-5.1); Sodium 137 mmol/L (137-145); Total Bilirubin 0.8 mg/dL (0.2-1.3); Total Protein 6.6 g/dL (6.3-8.2)
[2023-05-24 12:57] LABS: Partial Thromboplastin Time 28.8 sec (22.0-30.0); Prothrombin Time 11.3 sec (10.0-12.5)
--- NOTE | 2023-05-24 13:18 | CT ---
EXAMINATION TYPE: CT chest angio for PE DATE OF EXAM: 05/24/2023 COMPARISON: NONE HISTORY: SOB, chest pain, recent blood clot removal from leg CT DLP: 306.4 mGycm. Automated Exposure Control for Dose Reduction was Utilized. CONTRAST: CTA scan of the thorax is performed with IV Contrast, patient injected with 100 ml mL of Isovue 370, pulmonary embolism protocol. MIP Images are created on CT scanner and reviewed. FINDINGS: LUNGS: Mild bibasilar linear scarring and/or atelectasis. No suspicious focal consolidation. No pleur al effusion or pneumothorax seen bilaterally. MEDIASTINUM: There is satisfactory enhancement of the pulmonary artery and its branches, there is no CT evidence for pulmonary embolism. Ascending aorta measures up to 4.0 cm in diameter axial image 66. No thoracic aortic dissection. No greater than 1 cm hilar or mediastinal lymph nodes. Tiny pericardi al effusion is seen. No cardiomegaly. Coronary artery calcifications are present. OTHER: Significant Bilateral gynecomastia. Small size hiatal hernia. Slight scoliotic curvature with mild multilevel spurring. Low dense thickening through both adrenal glands consistent with benign lip id rich hyperplasia. IMPRESSION: 1. No CT evidence for acute pulmonary embolism. 2. No suspicious acute pulmonary process.
[2023-05-24 13:49] LABS: NT-Pro-B-Type Natriuretic Pept 2000 pg/mL
[2023-05-24] MEDS ORDERED: METOCLOPRAMIDE 5 MG/ML 2 ML VIAL IVP STA (14:45)
[2023-05-24] MEDS ORDERED: MORPHINE SULFATE 2 MG/ML SYRINGE IVP ONE (14:45)
[2023-05-24] MEDS ORDERED: MAG HYDROX/AL HYDROX/SIMETH 30 ML, HYOSCYAMINE ELIXIR 10 ML PO STA ×2 (14:45)
[2023-05-24] MEDS ORDERED: NITROGLYCERIN SL TABS 0.4 MG TAB SUBLINGUAL PRN (14:46)
--- NOTE | 2023-05-24 14:46 | ED ---
General Adult HPI - General Chief complaint: Shortness of Breath Stated complaint: Post op-Vomiting Time Seen by Provider: 05/24/23 11:25 Source: patient, police, RN notes reviewed Mode of arrival: ambulatory Limitations: no limitations - History of Present Illness Initial comments: 78-year-old male presents emergency Department with chief complaint of chest pain. Patient states his started today states he has associated nausea vomiting. Patient states it's treatment center of his chest he feels short of breath and diaphoretic. Patient states he had a stent placed of his right leg along with DVT removal with Dr. Larios. Patient states he is on anticoagulants. Patient denies any fevers chills no cough or cold-like symptoms. - Related Data Home Medications Medication Instructions Recorded Confirmed Apalutamide [Erleada] 60 mg PO TUTHSA@0900 05/12/22 05/24/23 Apalutamide [Erleada] 120 mg PO SUMOWEFR@0900 05/12/22 05/24/23 Cholecalciferol [Vitamin D3 (125 125 mcg PO HS 05/12/22 05/24/23 Mcg = 5000 Iu)] Multivitamins, Thera [Multivitamin 1 tab PO HS 05/12/22 05/24/23 (formulary)] Apixaban [Eliquis Starter Pack See Taper PO DIRECTED 05/24/23 05/24/23 (for VTE)] Previous Rx's Medication Instructions Recorded Aspirin 81 mg PO DAILY tab 05/23/23 Clopidogrel [Plavix] 75 mg PO DAILY 90 Days #90 tab 05/23/23 Allergies Allergy/AdvReac Type Severity Reaction Status Date / Time Sulfa (Sulfonamide Allergy Anaphylaxis Verified 05/24/23 12:35 Antibiotics) Review of Systems ROS Statement: Those systems with pertinent positive or pertinent negative responses have been documented in the HPI. ROS Other: All systems not noted in ROS Statement are negative. Past Medical History Past Medical History: Cancer Additional Past Medical History / Comment(s): prostate cancer, bowel obstruction History of Any Multi-Drug Resistant Organisms: None Reported Past Surgical History: Prostate Surgery, Tonsillectomy Past Anesthesia/Blood Transfusion Reactions: No Reported Reaction Past Psychological History: No Psychological Hx Reported Smoking Status: Former smoker Past Alcohol Use History: None Reported Past Drug Use History: None Reported - Past Family History Mother Family Medical History: Cancer Additional Family Medical History / Comment(s): from leukemia Sister(s) Family Medical History: Cancer Additional Family Medical History / Comment(s): breast cancer General Exam Limitations: no limitations General appearance: alert, in no apparent distress Head exam: Present: atraumatic, normocephalic, normal inspection Eye exam: Present: normal appearance, PERRL, EOMI. Absent: scleral icterus, conjunctival injection, periorbital swelling ENT exam: Present: normal exam, mucous membranes moist Neck exam: Present: normal inspection. Absent: tenderness, meningismus, lymphadenopathy Respiratory exam: Present: normal lung sounds bilaterally. Absent: respiratory distress, wheezes, rales, rhonchi, stridor Cardiovascular Exam: Present: regular rate, normal rhythm, normal heart sounds. Absent: systolic murmur, diastolic murmur, rubs, gallop, clicks GI/Abdominal exam: Present: soft, normal bowel sounds. Absent: distended, tenderness, guarding, rebound, rigid Course Vital Signs 05/24/23 05/24/23 11:18 12:00 Temperature 98.2 F Pulse Rate 88 Respiratory 22 22 Rate Blood Pressure 142/70 O2 Sat by Pulse 97 Oximetry EKG Findings - EKG Comments: EKG Findings:: EKG performed at 11:28 sinus rhythm rate of 78 NV 140 QRS 92 QT/ QTC 328/362 - EKG Results: EKG: interpreted by FRACISCO Medical Decision Making - Medical Decision Making Was pt. sent in by a medical professional or institution (, PA, PULP REFINER OPERATOR, urgent care, hospital, or residential...) When possible be specific @ -No Did you speak to anyone other than the patient for history (EMS, parent, family, police, friend...)? What history was obtained from this source @ -No Did you review nursing and triage notes (agree or disagree)? Why? @ -I reviewed and agree with nursing and triage notes Were old charts reviewed (outside hosp., previous admission, EMS record, old EKG, old radiological studies, urgent care reports/EKG's, residential records)? Report findings @ -Reviewed recent admission, yellowish in members studies Differential Diagnosis (chest pain, altered mental status, abdominal pain women, abdominal pain men, vaginal bleeding, weakness, fever, dyspnea, syncope, headache, dizziness, GI bleed, back pain, seizure, CVA, palpatations, mental health, musculoskeletal)? @ -Differential Chest Pain: Stable Angina, Unstable Angina, STEMI, NSTEMI Aortic Dissection, Pneumothorax, Musculoskeletal, Esophageal Spasm GERD, Cholecystitis, Pancreatitis, Zoster, this is not meant to be an all-inclusive list. EKG interpreted by me (3pts min.). @ -As above X-rays interpreted by me (1pt min.). @ -One view chest x-ray no acute cardiopulmonary process CT interpreted by me (1pt min.). @ -CT angios chest negative for acute PE U/S interpreted by me (1pt. min.). @ -None done What testing was considered but not performed or refused? (CT, X-rays, U/S, la bs)? Why? @ -None What meds were considered but not given or refused? Why? @ -None Did you discuss the management of the patient with other professionals (professionals i.e. , PA, PULP REFINER OPERATOR, lab, RT, psych nurse, high school social studies teacher, optical fabrication technician, teacher, weapons electrical engineering officer, assistant case manager)? Give summary @ -Dr. Camara for admission for observation for chest pain Was smoking cessation discussed for >3mins.? @ -No Was critical care preformed (if so, how long)? @ -No Were there social determinants of health that impacted care today? How? (Homelessness, low income, unemployed, alcoholism, drug addiction, transportation, low edu. Level, literacy, decrease access to med. care, intermediate, rehab)? @ -No Was there de-escalation of care discussed even if they declined (Discuss DNR or withdrawal of care, Hospice)? DNR status @ -No What co-morbidities impacted this encounter? (DM, HTN, Smoking, COPD, CAD, Cancer, CVA, ARF, Chemo, Hep., AIDS, mental health diagnosis, sleep apnea, morbid obesity)? @ -DVT Was patient admitted / discharged? Hospital course, mention meds given and route, prescriptions, significant lab abnormalities, going to OR and other pertinent info. @ -[Admitted patient presented for severe and chest pain, diaphoresis. This may be related to reflux though patient had recent surgical intervention of his right leg in cardiac risk factors. Patiently admitted for cardiac rule out Undiagnosed new problem with uncertain prognosis? @ -No Drug Therapy requiring intensive monitoring for toxicity (Heparin, Nitro, Insulin, Cardizem)? @ -No Were any procedures done? @ -No Diagnosis/symptom? @ -Chest pain Acute, or Chronic, or Acute on Chronic? @ -Acute (without systemic symptoms) or Complicated (systemic symptoms)? @ -[Complicated Side effects of treatment? @ -No Exacerbation, Progression, or Severe Exacerbation? @ -No Poses a threat to life or bodily function? How? (Chest pain, [place], [place], pneumonia, PE, COPD, DKA, ARF, appy, cholecystitis, CVA, Diverticulitis, Homicidal, Suicidal, threat to staff... and all critical care pts) @ -Yes possible ACS - Lab Data Result diagrams: 05/24/23 12:19 05/24/23 12: Lab Results 05/24/23 05/24/23 05/24/23 Range/Units 12:19 12:19 12:19 WBC 14.7 H (3.8-10.6) k/uL RBC 3.96 L (4.30-5.90) m/uL Hgb 12.7 L (13.0-17.5) gm/dL Hct 37.9 L (39.0-53.0) % MCV 95.8 (80.0-100.0) fL MCH 32.1 (25.0-35.0) pg MCHC 33.5 (31.0-37.0) g/dL RDW 12.4 (11.5-15.5) % Plt Count 295 (150-450) k/uL MPV 8.0 Neutrophils % 94 % Lymphocytes % 3 % Monocytes % 4 % Eosinophils % 0 % Basophils % 0 % Neutrophils # 13.7 H (1.3-7.7) k/uL Lymphocytes # 0.4 L (1.0-4.8) k/uL Monocytes # 0.5 (0-1.0) k/uL Eosinophils # 0.0 (0-0.7) k/uL Basophils # 0.0 (0-0.2) k/uL PT 11.3 (10.0-12.5) sec INR 1.0 (<1.2) APTT 28.8 (22.0-30.0) sec Sodium 137 (137-145) mmol/L Potassium 3.8 (3.5-5.1) mmol/L Chloride 106 (98-107) mmol/L Carbon Dioxide 19 L (22-30) mmol/L Anion Gap 12 mmol/L BUN 16 (9-20) mg/dL Creatinine 0.81 (0.66-1.25) mg/dL Est GFR (CKD-EPI)AfAm >90 (>60 ml/min/1.73 sqM) Est GFR (CKD-EPI)NonAf 86 (>60 ml/min/1.73 sqM) Glucose 136 H (74-99) mg/dL Lactic Ac Sepsis Rflx Plasma Lactic Acid Collin (0.7-2.0) mmol/L Calcium 9.6 (8.4-10.2) mg/dL Total Bilirubin 0.8 (0.2-1.3) mg/dL AST 33 (17-59) U/L ALT 25 (4-49) U/L Alkaline Phosphatase 108 (38-126) U/L Troponin I (0.000-0.034) ng/mL NT-Pro-B Natriuret Pep 2000 pg/mL Total Protein 6.6 (6.3-8.2) g/dL Albumin 4.1 (3.5-5.0) g/dL 05/24/23 05/24/23 05/24/23 Range/Units 12:19 12:19 13:16 WBC (3.8-10.6) k/uL RBC (4.30-5.90) m/uL Hgb (13.0-17.5) gm/dL Hct (39.0-53.0) % MCV (80.0-100.0) fL MCH (25.0-35.0) pg MCHC (31.0-37.0) g/dL RDW (11.5-15.5) % Plt Count (150-450) k/uL MPV Neutrophils % % Lymphocytes % % Monocytes % % Eosinophils % % Basophils % % Neutrophils # (1.3-7.7) k/uL Lymphocytes # (1.0-4.8) k/uL Monocytes # (0-1.0) k/uL Eosinophils # (0-0.7) k/uL Basophils # (0-0.2) k/uL PT (10.0-12.5) sec INR (<1.2) APTT (22.0-30.0) sec Sodium (137-145) mmol/L Potassium (3.5-5.1) mmol/L Chloride (98-107) mmol/L Carbon Dioxide (22-30) mmol/L Anion Gap mmol/L BUN (9-20) mg/dL Creatinine (0.66-1.25) mg/dL Est GFR (CKD-EPI)AfAm (>60 ml/min/1.73 sqM) Est GFR (CKD-EPI)NonAf (>60 ml/min/1.73 sqM) Glucose (74-99) mg/dL Lactic Ac Sepsis Rflx Y Plasma Lactic Acid Collin 2.7 H* (0.7-2.0) mmol/L Calcium (8.4-10.2) mg/dL Total Bilirubin (0.2-1.3) mg/dL AST (17-59) U/L ALT (4-49) U/L Alkaline Phosphatase (38-126) U/L Troponin I <0.012 (0.000-0.034) ng/mL NT-Pro-B Natriuret Pep pg/mL Total Protein (6.3-8.2) g/dL Albumin (3.5-5.0) g/dL Disposition Clinical Impression: Chest pain, Nausea & vomiting Disposition: ADMITTED IP TO THIS HOSP Condition: Fair Referrals: Emanuel Wade DO [Primary Care Provider] - 1-2 days Time of Disposition: 14:46
[2023-05-24] MEDS ORDERED: IPRATROPIUM-ALBUTEROL 3 ML NEB INHALATION STA (19:41)
[2023-05-24] MEDS ORDERED: LORazepam 2 MG/ML INJ IM PRN (19:48)
[2023-05-24] MEDS ORDERED: LORazepam 1 MG TAB PO PRN (19:49)
[2023-05-24] MEDS: IPRATROPIUM-ALBUTEROL 3 ML NEB INHALATION SCH ×2 (20:15→20:21)
[2023-05-24] MEDS: Apixaban Initiation Dose--VTE 5 MG TAB PO SCH (21:03)
[2023-05-24] MEDS: ONDANSETRON 4 MG/2 ML VIAL IVP PRN (21:03)
[2023-05-24] MEDS: MULTIVITAMINS, THERA 1 EACH TAB PO SCH (21:03)
[2023-05-24] MEDS: PANTOPRAZOLE 40 MG TABLET PO SCH (21:04)
[2023-05-24] MEDS: CHOLECALCIFEROL 125 MCG (5000 IU) TABLET PO SCH (21:04)
[2023-05-24] MEDS: SODIUM CHLORIDE 0.9% 1,000 ML IV SCH (22:05)
[2023-05-25] MEDS: PANTOPRAZOLE 40 MG TABLET PO SCH ×2 (06:54→17:22)
[2023-05-25] MEDS: IPRATROPIUM-ALBUTEROL 3 ML NEB INHALATION SCH ×4 (07:37→20:34)
[2023-05-25] MEDS: Apixaban Initiation Dose--VTE 5 MG TAB PO SCH ×2 (08:32→20:40)
[2023-05-25] MEDS: ONDANSETRON 4 MG/2 ML VIAL IVP PRN (08:32)
[2023-05-25] MEDS: ASPIRIN 81 MG PO SCH (08:32)
[2023-05-25] MEDS: SODIUM CHLORIDE 0.9% 1,000 ML IV SCH (08:32)
[2023-05-25] MEDS: CLOPIDOGREL 75 MG TAB PO SCH (08:32)
[2023-05-25] MEDS ORDERED: APALUTAMIDE 60 MG PO SCH (09:00)
[2023-05-25] MEDS ORDERED: ASPIRIN 325 MG TAB PO SCH (09:00)
[2023-05-25] MEDS ORDERED: ONDANSETRON ODT 4 MG TAB PO PRN (11:52)
[2023-05-25 12:39] LABS: Chol/HDL Ratio 4.05 Ratio; LDL Cholesterol,Calculated 125.7 mg/dL (0.0-131.0)
--- NOTE | 2023-05-25 14:45 | P.GSCN ---
History of Present Illness Consult date: 05/25/23 Reason for Consult: recent iliac thrombectomy and stenting History of present illness: 78-year-old male presented to the emergency Department after recent thrombectomy and iliac stenting by Dr. Larios secondary to complaint of chest pain. Patient states his started today states he has associated nausea vomiting. Patient states it's treatment center of his chest he feels short of breath and diaphoretic. Patient states he is on anticoagulants. Patient denies any fevers chills no cough or cold-like symptoms. He states his leg feels good and no pain in the lower extremity. Review of Systems All systems: negative (what is mentioned in the PMH or HPI) Past Medical History Past Medical History: Cancer Additional Past Medical History / Comment(s): prostate cancer, bowel obstruction History of Any Multi-Drug Resistant Organisms: None Reported Past Surgical History: Prostate Surgery, Tonsillectomy Past Anesthesia/Blood Transfusion Reactions: No Reported Reaction Past Psychological History: No Psychological Hx Reported Smoking Status: Former smoker Past Alcohol Use History: None Reported Past Drug Use History: None Reported Additional Drug Use History / Comment(s): Quit smokin at age 32 - Past Family History Mother Family Medical History: Cancer Additional Family Medical History / Comment(s): from leukemia Sister(s) Family Medical History: Cancer Additional Family Medical History / Comment(s): breast cancer Medications and Allergies Home Medications Medication Instructions Recorded Confirmed Type Apalutamide [Erleada] 60 mg PO TUTHSA@0900 05/12/22 05/24/23 History Apalutamide [Erleada] 120 mg PO SUMOWEFR@0900 05/12/22 05/24/23 History Cholecalciferol [Vitamin D3 (125 125 mcg PO HS 05/12/22 05/24/23 History Mcg = 5000 Iu)] Multivitamins, Thera [Multivitamin 1 tab PO HS 05/12/22 05/24/23 History (formulary)] Aspirin 81 mg PO DAILY tab 05/23/23 05/24/23 Rx Clopidogrel [Plavix] 75 mg PO DAILY 90 Days #90 tab 05/23/23 05/24/23 Rx Apixaban [Eliquis Starter Pack See Taper PO DIRECTED 05/24/23 05/24/23 History (for VTE)] Allergies Allergy/AdvReac Type Severity Reaction Status Date / Time Sulfa (Sulfonamide Allergy Anaphylaxis Verified 05/24/23 12:35 Antibiotics) Surgical - Exam Vital Signs Temp Pulse Resp BP Pulse Ox 98.2 F 88 22 142/70 97 05/24/23 11:18 05/24/23 11:18 05/24/23 11:18 05/24/23 11:18 05/24/23 11:18 - General well developed, well nourished, no distress - Eyes PERRL, normal ocular movement - ENT normal pinna, normal nares - Neck no masses, no bruits - Respiratory normal expansion, normal respiratory effort - Cardiovascular Rhythm: regular - Abdomen Abdomen: soft, non tender - Integumentary no rash, no growths - Neurologic normal coordination, normal sensation - Psychiatric oriented to time, oriented to person, oriented to place, speech is normal 1+ edema left lower extremity No tenderness to palpation palpable dp and pt pulses bilaterally Results - Labs 05/24/23 12:19 05/24/23 12:19 Abnormal Lab Results - Last 24 Hours (Table) 05/24/23 05/24/23 05/24/23 Range/Units 12:19 15:43 19:19 Plasma Lactic Acid Collin 2.3 H* 2.2 H* (0.7-2.0) mmol/L Triglycerides 162.00 H (0.00-149.00) mg/dL Cholesterol 210.00 H (0.00-200.00) mg/dL Diabetes panel 05/24/23 Range/Units 12:19 Triglycerides 162.00 H (0.00-149.00) mg/dL HDL Cholesterol 51.90 (40.00-60.00) mg/dL Assessment and Plan Assessment: Recent left lower extremity dvt Recent history of percutaneous thrombectomy and stenting of the left common iliac vein Acute chest pain Nausea Plan: Patient is doing well after recent vascular procedure Continue compression therapy to the left lower extremity Encourage ambulation, and exercise Continue oral anticoagulation Thank you for the consultation.
[2023-05-25] MEDS: LACTATED RINGERS 1,000 ML IV SCH ×2 (15:49→23:04)
--- NOTE | 2023-05-25 18:13 | P.CRDCN ---
History of Present Illness Consult date: 05/25/23 History of present illness: HISTORY OF PRESENTING ILLNESS 78-year-old patient recently had left eyelid extending for maythurner syndrome and mechanical thrombectomy for extensive DVT in her left lower extremity with Dr. Larios. She presented to the hospital because of nausea and vomiting. Cardiology was consulted to evaluate for chest pain symptoms. Patient had a CT chest done which did not show any evidence of PE. On my personal review of images it does show significant coronary artery calcification. REVIEW OF SYSTEMS 14 point review of system is negative except what is mentioned above in HPI. PHYSICAL EXAMINATION Vital signs reviewed. Head: Normocephalic. Eyes: Sclerae nonicteric. Neck: Brisk carotid upstroke, no jugular venous distention. Lungs: Clear to auscultation. Heart: Regular rate and rhythm, S1-S2, no S3, no murmur or rub. Abdomen: Soft nontender, positive bowel sounds no organomegaly. Extremities: No edema, intact distal pulses. Neuro: Alert, oritented, no focal deficits ASSESSMENT Moderate to severe coronary artery calcification Nausea and vomiting and atypical chest pain. Rule out of acute coronary syndrome. 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 Srivastava and an outpatient nuclear treadmill stress test Past Medical History Past Medical History: Cancer Additional Past Medical History / Comment(s): prostate cancer, bowel obstruction History of Any Multi-Drug Resistant Organisms: None Reported Past Surgical History: Prostate Surgery, Tonsillectomy Past Anesthesia/Blood Transfusion Reactions: No Reported Reaction Past Psychological History: No Psychological Hx Reported Smoking Status: Former smoker Past Alcohol Use History: None Reported Past Drug Use History: None Reported Additional Drug Use History / Comment(s): Quit smokin at age 32 - Past Family History Mother Family Medical History: Cancer Additional Family Medical History / Comment(s): from leukemia Sister(s) Family Medical History: Cancer Additional Family Medical History / Comment(s): breast cancer Medications and Allergies Home Medications Medication Instructions Recorded Confirmed Type Apalutamide [Erleada] 60 mg PO TUTHSA@0900 05/12/22 05/24/23 History Apalutamide [Erleada] 120 mg PO SUMOWEFR@0900 05/12/22 05/24/23 History Cholecalciferol [Vitamin D3 (125 125 mcg PO HS 05/12/22 05/24/23 History Mcg = 5000 Iu)] Multivitamins, Thera [Multivitamin 1 tab PO HS 05/12/22 05/24/23 History (formulary)] Aspirin 81 mg PO DAILY tab 05/23/23 05/24/23 Rx Clopidogrel [Plavix] 75 mg PO DAILY 90 Days #90 tab 05/23/23 05/24/23 Rx Apixaban [Eliquis Starter Pack See Taper PO DIRECTED 05/24/23 05/24/23 Histor y (for VTE)] Allergies Allergy/AdvReac Type Severity Reaction Status Date / Time Sulfa (Sulfonamide Allergy Anaphylaxis Verified 05/24/23 12:35 Antibiotics) Physical Exam Vitals: Vital Signs Temp Pulse Pulse Resp BP Pulse Ox 05/25/23 15:00 97.9 F 72 15 182/88 98 05/25/23 07:00 97.9 F 69 15 162/81 98 05/25/23 01:50 98.5 F 73 15 131/71 96 05/24/23 20:26 82 05/24/23 20:15 81 05/24/23 20:00 15 05/24/23 19:14 98.4 F 78 15 124/88 98 05/24/23 18:30 97.3 F L 80 20 183/88 99 Intake and Output 05/25/23 05/25/23 05/25/23 06:59 14:59 22:59 Other: Voiding Method Toilet # Voids 1 1 # Bowel Movements 0 Results 05/24/23 12:19 05/24/23 12:19 Cardiac Enzymes 05/24/23 Range/Units 19:19 Troponin I 0.033 (0.000-0.034) ng/mL Lipids 05/24/23 Range/Units 12:19 Triglycerides 162.00 H (0.00-149.00) mg/dL Cholesterol 210.00 H (0.00-200.00) mg/dL HDL Cholesterol 51.90 (40.00-60.00) mg/dL Cholesterol/HDL Ratio 4.05 Ratio Current Medications Generic Name Dose Route Start Last Admin Trade Name Freq PRN Reason Stop Dose Admin Albuterol/Ipratropium 3 ml 05/24/23 20:00 05/25/23 15:01 Ipratropium-Albuterol 3 Ml Neb INHALATION Not Given RT-QID [facility] Apixaban 10 mg 05/24/23 21:00 05/25/23 08:32 Apixaban Initiation Dose--Vte 5 Mg Tab PO 06/23/23 20:59 10 mg BID THALIA Administration Taper Aspirin 81 mg 05/25/23 09:00 05/25/23 08:32 Aspirin 81 Mg PO 81 mg DAILY THALIA Administration Atorvastatin Calcium 40 mg 05/25/23 21:00 Atorvastatin 40 Mg Tab PO HS [facility] Cholecalciferol 125 mcg 05/24/23 21:00 05/24/23 21:04 Cholecalciferol 125 Mcg (5000 Iu) Tablet PO Not Given HS [facility] Clopidogrel Bisulfate 75 mg 05/25/23 09:00 05/25/23 08:32 Clopidogrel 75 Mg Tab PO 75 mg DAILY [facility] Administration Lactated Ringer's 1,000 mls @ 125 mls/hr 05/25/23 14:45 05/25/23 15:49 Lactated Ringers IV 125 mls/hr .Q8H [facility] Administration Lorazepam 1 mg 05/24/23 19:49 Lorazepam 1 Mg Tab PO Q8HR PRN Anxiety Multivitamins 1 each 05/24/23 21:00 05/24/23 21:03 Multivitamins, Thera 1 Each Tab PO Not Given HS [facility] Nitroglycerin 0.4 mg 05/24/23 14:46 Nitroglycerin Sl Tabs 0.4 Mg Tab SUBLINGUAL Q5M PRN Chest Pain Patient's Own ( 60 mg 05/25/23 09:00 05/25/23 08:28 Apalutamide [Erleada PO Not Given ] 60 Mg Tablet) TUTHSA@0900 [facility] Patient's Own ( 120 mg 05/26/23 09:00 Apalutamide [Erleada PO ] 60 Mg Tablet) SUMOWEFR@0900 [facility] Ondansetron HCl 4 mg 05/24/23 19:27 05/25/23 08:32 Ondansetron 4 Mg/2 Ml Vial IVP 4 mg Q6HR PRN Administration Nausea And Vomiting Ondansetron HCl 4 mg 05/25/23 11:52 05/25/23 17:22 Ondansetron Odt 4 Mg Tab PO 4 mg Q8HR PRN Administration Nausea Pantoprazole Sodium 40 mg 05/24/23 19:45 05/25/23 17:22 Pantoprazole 40 Mg Tablet PO 40 mg AC-BID THALIA Administration Intake and Output 05/25/23 05/25/23 05/25/23 06:59 14:59 22:59 Other: Voiding Method Toilet # Voids 1 1 # Bowel Movements 0 05/24/23 12:19 05/24/23 12:19
--- NOTE | 2023-05-25 20:26 | P.HPIM ---
History of Present Illness H&P Date: 05/25/23 Chief Complaint: Nausea vomiting I'm rounding for Dr. Brett Camara.. This is a pleasant 78-year-old patient, was PCP is Dr. Wade. Patient is admitted May 20 and discharged on May 23. extensive left lower extremity deep vein thrombosis. He is status post percutaneous thrombectomy of the left common iliac to proximal femoral vein, percutaneous balloon venoplasty of the external iliac to femoral vein and percutaneous transluminal stent placement of the external iliac vein.-By vascular surgery Dr. Tricia Larios. Was discharged on eliquis. Yesterday morning around oh 3 in the morning patient started having vomiting and persistent dry heaving nausea. Unable to keep any food down. Now gone. No fever. Patient has a axis incision site at the left behind knee. Healing well. Unable to keep the water down. at the bedside. No fever no chills. Review of systems: GEN.: Tired EYES: None HEENT: None NECK: None RESPIRATORY: None CARDIOVASCULAR: None GASTROINTESTINAL: As above GENITOURINARY: None MUSCULOSKELETAL: As above LYMPHATICS: None HEMATOLOGICAL: None PSYCHIATRY: None NEUROLOGICAL: None Social history No smoking. No alcohol. . Physical examination: VITAL SIGNS: 97.9, 69, 15, 1 62 x 81, 98% room air GENERAL: BMI 25.1, declining but awake comfortable. EYES: Pupils equal. Conjunctiva normal. HEENT: External appearance of nose and ears normal, oral cavity grossly normal. NECK: JVD not raised; masses not palpable. HEART: First and second heart sounds are normal; no edema. LUNGS: Respiratory rate normal; clear to auscultation. ABDOMEN: Soft, nontender, liver spleen not palpable, no masses palpable. PSYCH: Alert and oriented x3; mood and affect normal. MUSCULOSKELETAL:No Clubbing/cyanosis;muscles-grossly intact. Dressing over the left behind knee. NEUROLOGICAL: Cranial nerves grossly intact; no facial asymmetry, power and sensation grossly intact. LYMPHATICS: No lymph nodes palpable in the axilla and neck INVESTIGATIONS, reviewed in the clinical context: 05/24/2023: White count 14.7 hemoglobin 12.7 platelets 295 sodium 137 potassium 3.8 lactic acid 2.7 LDL 125 EKG tracing personally reviewed by me-normal sinus rhythm. Nonspecific ST-T wave changes. Chest CTA: Negative for PE Chest x-ray film, personally reviewed by me-hyperinflation. Assessment and plan: -Acute persistent nausea vomiting after patient was started on anticoagulation. Also in aspirin and Plavix. Possible acute flareup of acute gastritis. PPI. Tums. Soft diet -extensive acute left lower extremity deep vein thrombosis. He is status post percutaneous thrombectomy of the left common iliac to proximal femoral vein, pe rcutaneous balloon venoplasty of the external iliac to femoral vein and percutaneous transluminal stent placement of the external iliac vein.-By vascular surgery Dr. Tricia Larios. Was discharged on eliquis. On May 23 -Ascending aorta aneurysm [address] chest[address] Follow-up with cardiothoracic outpatient. -Abnormal EKG. Consult cardiology -Lactic acidosis, type II from dehydration. No sepsis IV fluids Care was discussed with the patient and . Questions answered. Vascular and cardiology consulted. Past Medical History Past Medical History: Cancer Additional Past Medical History / Comment(s): prostate cancer, bowel obstruction History of Any Multi-Drug Resistant Organisms: None Reported Past Surgical History: Prostate Surgery, Tonsillectomy Past Anesthesia/Blood Transfusion Reactions: No Reported Reaction Past Psychological History: No Psychological Hx Reported Smoking Status: Former smoker Past Alcohol Use History: None Reported Past Drug Use History: None Reported Additional Drug Use History / Comment(s): Quit smokin at age 32 - Past Family History Mother Family Medical History: Cancer Additional Family Medical History / Comment(s): from leukemia Sister(s) Family Medical History: Cancer Additional Family Medical History / Comment(s): breast cancer Medications and Allergies Home Medications Medication Instructions Recorded Confirmed Type Apalutamide [Erleada] 60 mg PO TUTHSA@0900 05/12/22 05/24/23 History Apalutamide [Erleada] 120 mg PO SUMOWEFR@0900 05/12/22 05/24/23 History Cholecalciferol [Vitamin D3 (125 125 mcg PO HS 05/12/22 05/24/23 History Mcg = 5000 Iu)] Multivitamins, Thera [Multivitamin 1 tab PO HS 05/12/22 05/24/23 History (formulary)] Aspirin 81 mg PO DAILY tab 05/23/23 05/24/23 Rx Clopidogrel [Plavix] 75 mg PO DAILY 90 Days #90 tab 05/23/23 05/24/23 Rx Apixaban [Eliquis Starter Pack See Taper PO DIRECTED 05/24/23 05/24/23 History (for VTE)] Allergies Allergy/AdvReac Type Severity Reaction Status Date / Time Sulfa (Sulfonamide Allergy Anaphylaxis Verified 05/24/23 12:35 Antibiotics) Physical Exam Vitals: Vital Signs Temp Pulse Pulse Resp BP BP Pulse Ox 05/25/23 07:00 97.9 F 69 15 162/81 98 05/25/23 01:50 98.5 F 73 15 131/71 96 05/24/23 20:26 82 05/24/23 20:15 81 05/24/23 20:00 15 05/24/23 19:14 98.4 F 78 15 124/88 98 05/24/23 18:30 97.3 F L 80 20 183/88 99 05/24/23 12:00 22 05/24/23 11:18 98.2 F 88 22 142/70 97 Intake and Output 05/24/23 05/25/23 05/25/23 22:59 06:59 14:59 Other: # Voids 1 1 Weight 74.843 kg Results CBC & Chem 7: 05/24/23 12:19 05/24/23 12:19 Labs: Abnormal Lab Results - Last 24 Hours (Table) 05/24/23 05/24/23 05/24/23 Range/Units 12:19 12:19 12:19 WBC 14.7 H (3.8-10.6) k/uL RBC 3.96 L (4.30-5.90) m/uL Hgb 12.7 L (13.0-17.5) gm/dL Hct 37.9 L (39.0-53.0) % Neutrophils # 13.7 H (1.3-7.7) k/uL Lymphocytes # 0.4 L (1.0-4.8) k/uL Carbon Dioxide 19 L (22-30) mmol/L Glucose 136 H (74-99) mg/dL Plasma Lactic Acid Collin 2.7 H* (0.7-2.0) mmol/L 05/24/23 05/24/23 Range/Units 15:43 19:19 WBC (3.8-10.6) k/uL RBC (4.30-5.90) m/uL Hgb (13.0-17.5) gm/dL Hct (39.0-53.0) % Neutrophils # (1.3-7.7) k/uL Lymphocytes # (1.0-4.8) k/uL Carbon Dioxide (22-30) mmol/L Glucose (74-99) mg/dL Plasma Lactic Acid Collin 2.3 H* 2.2 H* (0.7-2.0) mmol/L Thrombosis Risk Factor Assmnt - Choose All That Apply Any of the Below Risk Factors Present?: Yes Each Factor Represents 1 point: Obesity (BMI >25) Other Risk Factors: Yes Each Risk Factor Represents 3 Points: Age 75 years or older Other congenital or acquired thrombophilia - If yes, enter type in comment: No Thrombosis Risk Factor Assessment Total Risk Factor Score: 4 Thrombosis Risk Factor Assessment Level: Moderate Risk
[2023-05-25] MEDS: MULTIVITAMINS, THERA 1 EACH TAB PO SCH (20:41)
[2023-05-25] MEDS: CHOLECALCIFEROL 125 MCG (5000 IU) TABLET PO SCH (20:41)
[2023-05-25] MEDS: CALCIUM CARBONATE 500 MG CHEWABLE PO SCH (20:43)
[2023-05-25] MEDS ORDERED: ATORVASTATIN 40 MG TAB PO SCH (21:00)
[2023-05-26] MEDS: LACTATED RINGERS 1,000 ML IV SCH (05:28)
[2023-05-26] MEDS: PANTOPRAZOLE 40 MG TABLET PO SCH (05:29)
[2023-05-26 08:00] VITALS: BP 119/72; PULSE 66; RESP 14; TEMP 97.7
[2023-05-26] MEDS: IPRATROPIUM-ALBUTEROL 3 ML NEB INHALATION SCH ×2 (08:38→11:52)
[2023-05-26] MEDS ORDERED: APALUTAMIDE 60 MG PO SCH (09:00)
[2023-05-26] MEDS: Apixaban Initiation Dose--VTE 5 MG TAB PO SCH (09:09)
[2023-05-26] MEDS: CALCIUM CARBONATE 500 MG CHEWABLE PO SCH (09:10)
[2023-05-26] MEDS: ASPIRIN 81 MG PO SCH (09:10)
[2023-05-26] MEDS: CLOPIDOGREL 75 MG TAB PO SCH (09:10)
--- NOTE | 2023-05-27 17:55 | P.DS ---
Providers Date of admission: 05/24/23 15:05 Expected date of discharge: 05/26/23 Attending physician: Brett Camara Consults: 05/24/23 14:46 Consult Physician Routine Consulting Provider: Liliana Larios Consult Reason/Comments: s/p stent placement Do you want consulting provider notified?: Yes 05/24/23 14:47 Consult Physician Urgent Consulting Provider: Ritesh Reddy Consult Reason/Comments: chest pain Do you want consulting provider notified?: Yes [facility]: Chief Complaint: Nausea vomiting I'm rounding for Dr. Brett Camara.. This is a pleasant 78-year-old patient, was PCP is Dr. Wade. Patient is admitted May 20 and discharged on May 23. extensive left lower extremity deep vein thrombosis. He is status post percutaneous thrombectomy of the left common iliac to proximal femoral vein, percutaneous balloon venoplasty of the external iliac to femoral vein and percutaneous transluminal stent placement of the external iliac vein.-By vascular surgery Dr. Tricia Larios. Was discharged on eliquis. Yesterday morning around oh 3 in the morning patient started having vomiting and persistent dry heaving nausea. Unable to keep any food down. Now gone. No fever. Patient has a axis incision site at the left behind knee. Healing well. Unable to keep the water down. at the bedside. No fever no chills. 05/26/2023: Patient doing much better today. Feels like a different man. Did tolerate her diet. Up to the bathroom. Care was discussed length with the patient and at the bedside. Questions answered. He'll keep his appointment with Dr. Larios. Lipitor) Protonix was added. Discussion and discharge planning more than 35 minutes Social history No smoking. No alcohol. . Physical examination: VITAL SIGNS: 97.7, 66, 14, 11 9 x 72, 96% room air GENERAL: Sitting up, comfortable EYES: Pupils equal. Conjunctiva normal. HEENT: External appearance of nose and ears normal, oral cavity grossly normal. NECK: JVD not raised; masses not palpable. HEART: First and second heart sounds are normal; no edema. LUNGS: Respiratory rate normal; clear to auscultation. ABDOMEN: Soft, nontender, liver spleen not palpable, no masses palpable. PSYCH: Alert and oriented x3; mood and affect normal. MUSCULOSKELETAL:No Clubbing/cyanosis;muscles-grossly intact. Dressing over the left behind knee. INVESTIGATIONS, reviewed in the clinical context: 05/24/2023: White count 14.7 hemoglobin 12.7 platelets 295 sodium 137 potassium 3.8 lactic acid 2.7 LDL 125 EKG tracing personally reviewed by me-normal sinus rhythm. Nonspecific ST-T wave changes. Chest CTA: Negative for PE Chest x-ray film, personally reviewed by me-hyperinflation. Assessment and plan: -Acute persistent nausea vomiting after patient was started on anticoagulation. Also in aspirin and Plavix. Possible acute flareup of acute gastritis. Resolved PPI. Tums. Soft diet -extensive acute left lower extremity deep vein thrombosis. He is status post percutaneous thrombectomy of the left common iliac to proximal femoral vein, percutaneous balloon venoplasty of the external iliac to femoral vein and percutaneous transluminal stent placement of the external iliac vein.-By vascular surgery Dr. Tricia Larios. Was discharged on eliquis. On May 23 -Ascending aorta aneurysm [address] chest[address] Follow-up with cardiothoracic outpatient. Patient was informed -Abnormal EKG. Seen by Dr. Srivastava. Follow up outpatient for a stress test. -Lactic acidosis, type II from dehydration. No sepsis: Resolved IV fluids Disposition: Home Past Medical History Past Medical History: Cancer Additional Past Medical History / Comment(s): prostate cancer, bowel obstruction History of Any Multi-Drug Resistant Organisms: None Reported Past Surgical History: Prostate Surgery, Tonsillectomy Past Anesthesia/Blood Transfusion Reactions: No Reported Reaction Past Psychological History: No Psychological Hx Reported Smoking Status: Former smoker Past Alcohol Use History: None Reported Past Drug Use History: None Reported Additional Drug Use History / Comment(s): Quit smokin at age 32 Plan - Discharge Summary Discharge Rx Participant: No New Discharge Prescriptions: New Atorvastatin [Lipitor] 40 mg PO HS #30 tab Pantoprazole [Protonix] 40 mg PO AC-BID #60 tab Calcium Carbonate [Tums] 500 mg PO TID tab Continue Multivitamins, Thera [Multivitamin (formulary)] 1 tab PO HS Apalutamide [Erleada] 60 mg PO TUTHSA@0900 Aspirin 81 mg PO DAILY tab Apixaban [Eliquis Starter Pack (for VTE)] See Taper PO DIRECTED Cholecalciferol [Vitamin D3 (125 Mcg = 5000 Iu)] 125 mcg PO HS Apalutamide [Erleada] 120 mg PO SUMOWEFR@0900 Clopidogrel [Plavix] 75 mg PO DAILY 90 Days #90 tab Discharge Medication List Apalutamide [Erleada] 60 mg PO TUTHSA@0900 05/12/22 [History] Apalutamide [Erleada] 120 mg PO SUMOWEFR@0900 05/12/22 [History] Cholecalciferol [Vitamin D3 (125 Mcg = 5000 Iu)] 125 mcg PO HS 05/12/22 [History] Multivitamins, Thera [Multivitamin (formulary)] 1 tab PO HS 05/12/22 [History] Aspirin 81 mg PO DAILY tab 05/23/23 [Rx] Clopidogrel [Plavix] 75 mg PO DAILY 90 Days #90 tab 05/23/23 [Rx] Apixaban [Eliquis Starter Pack (for VTE)] See Taper PO DIRECTED 05/24/23 [History] Atorvastatin [Lipitor] 40 mg PO HS #30 tab 05/26/23 [Rx] Calcium Carbonate [Tums] 500 mg PO TID tab 05/26/23 [Rx] Pantoprazole [Protonix] 40 mg PO AC-BID #60 tab 05/26/23 [Rx] Follow up Appointment(s)/Referral(s): Cody Srivastava MD [Medical Doctor] - 1 Week (Follow up with [facility] to schedule outpatient stress test and echocardiogram.) Emanuel Wade DO [Primary Care Provider] - 1-2 days Gregory Baptiste MD [STAFF PHYSICIAN] - 6 Weeks Liliana Larios DO [STAFF PHYSICIAN] - 1 Week Discharge Disposition: HOME SELF-CARE
== END 2023-05-26 14:14 | disposition home or self-care (01) ==
LOC: EC 11:12 → 6NMEDSUR 15:05
PROVIDERS: ADMIT Family Medicine; ATTEND Family Medicine
DX: R11.2 Nausea with vomiting, unspecified (principal); T45.515A Adverse effect of anticoagulants, initial encounter; E86.0 Dehydration; E87.20 Acidosis, unspecified; I71.40 Abdominal aortic aneurysm, without rupture, unspecified; R94.31 Abnormal electrocardiogram [ECG] [EKG]; Z79.899 Other long term (current) drug therapy; Z95.820 Peripheral vascular angioplasty status with implants and grafts; Z79.01 Long term (current) use of anticoagulants; Z79.82 Long term (current) use of aspirin; Z79.02 Long term (current) use of antithrombotics/antiplatelets; Z85.9 Personal history of malignant neoplasm, unspecified; Z87.891 Personal history of nicotine dependence; Z86.718 Personal history of other venous thrombosis and embolism
CPT/HCPCS: 96361 ×2; 96365; 96366 ×2; 96367; 99285; 36415; 94640; 94760; 93005; 83880; 80061; 80053; 83605 ×2; 84484; 85025; 85610; 85730; 71045; 71275; G0378 ×3; J2765; J2405 ×2; J2270; Q9967

== ENCOUNTER 2023-06-18 12:53 | Emergency (ER) | payer MEDICARE ==
[2023-06-18 13:05] VITALS: RESP 18; TEMP 98.1
--- NOTE | 2023-06-18 13:52 | ED ---
General Adult HPI - General Chief complaint: Extremity Problem,Nontraumatic Stated complaint: Leg swelling Time Seen by Provider: 06/18/23 12:53 Source: patient, RN notes reviewed, old records reviewed Mode of arrival: ambulatory Limitations: no limitations - History of Present Illness Initial comments: This is a 78-year-old male who presents to the emergency department with swelling to the left leg. Patient states he has a DVT in that leg and had a clot removed recently. Patient states he also had a stent put in that leg. Patient states he is on Eliquis and Plavix. Patient denies any difficulty breathing or shortness of breath. Patient states the swelling has gotten worse over the last few days but is nowhere near as big as it was when he originally had the clot. Patient denies any fever or chills. - Related Data Home Medications Medication Instructions Recorded Confirmed Apalutamide [Erleada] 60 mg PO TUTHSA@0900 05/12/22 06/18/23 Apalutamide [Erleada] 120 mg PO SUMOWEFR@0900 05/12/22 06/18/23 Apixaban [Eliquis Starter Pack 5 mg PO BID 05/24/23 06/18/23 (for VTE)] Scopolamine [Scopolamine 1 MG/72 1 patch TRANSDERM DIRECTED PRN 06/18/23 06/18/23 HR patch] Previous Rx's Medication Instructions Recorded Aspirin 81 mg PO DAILY tab 05/23/23 Clopidogrel [Plavix] 75 mg PO DAILY 90 Days #90 tab 05/23/23 Pantoprazole [Protonix] 40 mg PO AC-BID #60 tab 05/26/23 Allergies Allergy/AdvReac Type Severity Reaction Status Date / Time Sulfa (Sulfonamide Allergy Anaphylaxis Verified 06/18/23 13:54 Antibiotics) Review of Systems ROS Statement: Those systems with pertinent positive or pertinent negative responses have been documented in the HPI. ROS Other: All systems not noted in ROS Statement are negative. Past Medical History Past Medical History: Cancer Additional Past Medical History / Comment(s): prostate cancer, bowel obstruction History of Any Multi-Drug Resistant Organisms: None Reported Past Surgical History: Prostate Surgery, Tonsillectomy Past Anesthesia/Blood Transfusion Reactions: No Reported Reaction Past Psychological History: No Psychological Hx Reported Smoking Status: Former smoker Past Alcohol Use History: None Reported Past Drug Use History: None Reported - Past Family History Mother Family Medical History: Cancer Additional Family Medical History / Comment(s): from leukemia Sister(s) Family Medical History: Cancer Additional Family Medical History / Comment(s): breast cancer General Exam - General Exam Comments Initial Comments: GENERAL: Patient is well-developed and well-nourished. Patient is nontoxic and well- hydrated and is in mild distress. ENT: Neck is soft and supple. No significant lymphadenopathy is noted. Oropharynx is clear. Moist mucous membranes. Neck has full range of motion without eliciting any pain. EYES: The sclera were anicteric and conjunctiva were pink and moist. Extraocular movements were intact and pupils were equal round and reactive to light. Eyelids were unremarkable. PULMONARY: Unlabored respirations. Good breath sounds bilaterally. No audible rales rhonchi or wheezing was noted. CARDIOVASCULAR: There is a regular rate and rhythm without any murmurs gallops or rubs. ABDOMEN: Soft and nontender with normal bowel sounds. SKIN: Skin is clear with no lesions or rashes and otherwise unremarkable. NEUROLOGIC: Patient is alert and oriented x3. Cranial nerves II through XII are grossly intact. Motor and sensory are also intact. Normal speech, volume and content. Symmetrical smile. MUSCULOSKELETAL: Normal extremities with adequate strength and full range of motion. Patient's left leg is swollen good DP pulses there is no calf tenderness. LYMPHATICS: No significant lymphadenopathy is noted PSYCHIATRIC: Normal psychiatric evaluation. Limitations: no limitations Course Vital Signs 06/18/23 12:58 Temperature 98.1 F Pulse Rate 104 H Respiratory 18 Rate Blood Pressure 118/82 O2 Sat by Pulse 98 Oximetry Medical Decision Making - Medical Decision Making Was pt. sent in by a medical professional or institution (, PA, MANAGER RISK, urgent care, hospital, or longterm...) When possible be specific @ -No Did you speak to anyone other than the patient for history (EMS, parent, family, police, friend...)? What history was obtained from this source @ -No Did you review nursing and triage notes (agree or disagree)? Why? @ -I reviewed and agree with nursing and triage notes Were old charts reviewed (outside hosp., previous admission, EMS record, old EKG, old radiological studies, urgent care reports/EKG's, longterm records)? Report findings @ -I reviewed prior charts and prior lab work on this patient as well as an o perative note Differential Diagnosis (chest pain, altered mental status, abdominal pain women, abdominal pain men, vaginal bleeding, weakness, fever, dyspnea, syncope, headache, dizziness, GI bleed, back pain, seizure, CVA, palpatations, mental health, musculoskeletal)? @ -Cellulitis, DVT, arterial occlusion, edema this is not an all-inclusive list EKG interpreted by me (3pts min.). @ -As above X-rays interpreted by me (1pt min.). @ -None done CT interpreted by me (1pt min.). @ -None done U/S interpreted by me (1pt. min.). @ -Ultrasound showed no DVT What testing was considered but not performed or refused? (CT, X-rays, U/S, labs)? Why? @ -None What meds were considered but not given or refused? Why? @ -None Did you discuss the management of the patient with other professionals (professionals i.e. , PA, MANAGER RISK, lab, RT, psych nurse, family welfare social work professor, quarter trimmer, teacher, eeo officer, disease case manager rn)? Give summary @ -I spoke with Dr. Laboy Was smoking cessation discussed for >3mins.? @ -No Was critical care preformed (if so, how long)? @ -No Were there social determinants of health that impacted care today? How? (Homelessness, low income, unemployed, alcoholism, drug addiction, transpor tation, low edu. Level, literacy, decrease access to med. care, half-way, rehab)? @ -No Was there de-escalation of care discussed even if they declined (Discuss DNR or withdrawal of care, Hospice)? DNR status @ -No What co-morbidities impacted this encounter? (DM, HTN, Smoking, COPD, CAD, Cancer, CVA, ARF, Chemo, Hep., AIDS, mental health diagnosis, sleep apnea, morbid obesity)? @ -None Was patient admitted / discharged? Hospital course, mention meds given and route, prescriptions, significant lab abnormalities, going to OR and other pertinent info. @ -Dr. Laboy agreed that the patient needs to be seen and will be seen by Dr. Larios in the office tomorrow. He was in agreement with giving antibiotics. Patient was given Augmentin. Undiagnosed new problem with uncertain prognosis? @ -No Drug Therapy requiring intensive monitoring for toxicity (Heparin, Nitro, Insulin, Cardizem)? @ -No Were any procedures done? @ -No Diagnosis/symptom? @ -Swollen leg Acute, or Chronic, or Acute on Chronic? @ -Acute Uncomplicated (without systemic symptoms) or Complicated (systemic symptoms)? @ -Complicated Side effects of treatment? @ -No Exacerbation, Progression, or Severe Exacerbation? @ -No Poses a threat to life or bodily function? How? (Chest pain, USA, DC, pneumonia, PE, COPD, DKA, ARF, appy, cholecystitis, CVA, Diverticulitis, Homicidal, Suicidal, threat to staff... and all critical care pts) @ -No - Lab Data Result diagrams: 06/18/23 13:51 06/18/23 13:51 Lab Results 06/18/23 06/18/23 06/18/23 Range/Units 13:51 13:51 13:51 WBC 15.8 H (3.8-10.6) k/uL RBC 3.27 L (4.30-5.90) m/uL Hgb 10.5 L (13.0-17.5) gm/dL Hct 30.9 L (39.0-53.0) % MCV 94.7 (80.0-100.0) fL MCH 32.1 (25.0-35.0) pg MCHC 33.9 (31.0-37.0) g/dL RDW 13.1 (11.5-15.5) % Plt Count 293 (150-450) k/uL MPV 8.2 Neutrophils % 90 % Lymphocytes % 3 % Monocytes % 5 % Eosinophils % 0 % Basophils % 0 % Neutrophils # 14.1 H (1.3-7.7) k/uL Lymphocytes # 0.5 L (1.0-4.8) k/uL Monocytes # 0.7 (0-1.0) k/uL Eosinophils # 0.0 (0-0.7) k/uL Basophils # 0.0 (0-0.2) k/uL PT 12.2 (10.0-12.5) sec INR 1.1 (<1.2) APTT 32.8 H (22.0-30.0) sec Sodium 135 L (137-145) mmol/L Potassium 4.3 (3.5-5.1) mmol/L Chloride 103 (98-107) mmol/L Carbon Dioxide 21 L (22-30) mmol/L Anion Gap 11 mmol/L BUN 20 (9-20) mg/dL Creatinine 0.80 (0.66-1.25) mg/dL Est GFR (CKD-EPI)AfAm >90 (>60 ml/min/1.73 sqM) Est GFR (CKD-EPI)NonAf 87 (>60 ml/min/1.73 sqM) Glucose 110 H (74-99) mg/dL Calcium 9.9 (8.4-10.2) mg/dL Total Bilirubin 0.5 (0.2-1.3) mg/dL AST 16 L (17-59) U/L ALT 12 (4-49) U/L Alkaline Phosphatase 83 (38-126) U/L Total Protein 6.2 L (6.3-8.2) g/dL Albumin 3.8 (3.5-5.0) g/dL Disposition Clinical Impression: Swollen leg Disposition: HOME SELF-CARE Condition: Good Additional Instructions: Patient should take Augmentin twice a day. Patient should follow-up with Dr. Larios tomorrow Is patient prescribed a controlled substance at d/c from ED?: No Referrals: Liliana Larios DO [Primary Care Provider] - 1-2 days Time of Disposition: 16:11
[2023-06-18 14:19] LABS: Basophils % (A) 0 %; Eosinophils % (A) 0 %; HCT 30.9 % (39.0-53.0); HGB 10.5 gm/dL (13.0-17.5); Lymphocytes # (A) 0.5 k/uL (1.0-4.8); Lymphocytes % (A) 3 %; MCH 32.1 pg (25.0-35.0); MCHC 33.9 g/dL (31.0-37.0); MCV 94.7 fL (80.0-100.0); Mean Platelet Volume 8.2; Monocytes # (A) 0.7 k/uL (0-1.0); Monocytes % (A) 5 %; Neutrophils # (A) 14.1 k/uL (1.3-7.7); Neutrophils % (A) 90 %; Platelet Count 293 k/uL (150-450); RBC 3.27 m/uL (4.30-5.90); RDW 13.1 % (11.5-15.5); WBC 15.8 k/uL (3.8-10.6)
[2023-06-18 14:31] LABS: INR 1.1 (<1.2); Partial Thromboplastin Time 32.8 sec (22.0-30.0); Prothrombin Time 12.2 sec (10.0-12.5)
[2023-06-18 14:32] LABS: ALT 12 U/L (4-49); AST 16 U/L (17-59); African American GFR (CKD) >90 (>60 ml/min/1.73 sqM); Albumin 3.8 g/dL (3.5-5.0); Alkaline Phosphatase 83 U/L (38-126); Anion Gap 11 mmol/L; Blood Urea Nitrogen 20 mg/dL (9-20); Calcium 9.9 mg/dL (8.4-10.2); Carbon Dioxide 21 mmol/L (22-30); Chloride 103 mmol/L (98-107); Glucose 110 mg/dL (74-99); Non-African American GFR(CKD) 87 (>60 ml/min/1.73 sqM); Potassium 4.3 mmol/L (3.5-5.1); Sodium 135 mmol/L (137-145); Total Bilirubin 0.5 mg/dL (0.2-1.3); Total Protein 6.2 g/dL (6.3-8.2)
--- NOTE | 2023-06-18 15:33 | US ---
EXAMINATION TYPE: US venous doppler duplex LE LT DATE OF EXAM: 06/18/2023 2:54 PM COMPARISON: NONE CLINICAL INDICATION: Male, 78 years old with history of Swollen left leg; Hx left leg DVT with surgic al removal 05/22/2023. Patient on Plavix and Xeralto. Swelling. No redness. SIDE PERFORMED: Left TECHNIQUE: The lower extremity deep venous system is examined utilizing real time linear array sonog jesse with graded compression, doppler sonography and color-flow sonography. VESSELS IMAGED: Common Femoral Vein Deep Femoral Vein Greater Saphenous Vein * Femoral Vein Popliteal Vein Small Saphenous Vein * Proximal Calf Veins (* superficial vessels) Left Leg: Negative for DVT at time of scan Rouleaux flow visualized from CFV to popliteal vein IMPRESSION: Grayscale, color doppler, spectral doppler imaging performed of the deep veins of the lo wer extremities. There is normal flow, compressibility, vascular waveforms.
[2023-06-18] MEDS: AMOXIC-POT CLAV 875-125MG 1 EACH TAB PO STA (16:23)
[2023-06-18] MEDS: AMOXIC-POT CLAV 875MG STARTER PACK 2 TAB BTL PO STA (16:23)
[2023-06-18 16:44] VITALS: BP 113/86; PULSE 96
== END 2023-06-18 16:31 | disposition home or self-care (01) ==
LOC: EC 12:53
DX: M79.89 Other specified soft tissue disorders (principal); Z87.891 Personal history of nicotine dependence; Z88.2 Allergy status to sulfonamides
CPT/HCPCS: 36415; 80053; 85025; 85610; 85730; 99284